=== PATIENT | female | born 1940 | race Caucasian/White ===

== ENCOUNTER 2016-12-05 15:48 | Inpatient (IN) | payer MEDICARE, OTHER ==
--- NOTE | 2016-12-05 16:19 | ER Document Report ---
ED Medical Screen (RME) - General Stated Complaint: HEART RATE PROBLEM Notes: Patient is a 68-year-old female presents emergency Department complaining of dehydration. Patient is undergoing radiation for metastatic melanoma to the brain. Patient's last treatment was on Friday. Her daughters are present claimed that she has not been willing to take anything by mouth, she has required IV fluid hydration over the past week at least 4-5 times. She is either going to Dr. Irene (oncology) for fluids and has had required them at home with home care as well. Daughters bring her here today for evaluation. PMH: DM, metastatic melanoma TRAVEL OUTSIDE OF THE [place] IN LAST 30 DAYS: No - Related Data Allergies/Adverse Reactions: chlorpheniramine [From Codeine Antitussive Cough] Allergy (Intermediate, Verified 11/14/16 16:49) "over sedated" codeine [From Codeine Antitussive Cough] Allergy (Intermediate, Verified 16:49) "over sedated" phenylephrine HCl [From Codeine Antitussive Cough] Allergy (Intermediate, Verified 11/14/16 16:49) "over sedated" Past Medical History - Past Medical History Cardiac Medical History: Reports: Hx Coronary Artery Disease, Hx Hypertension Denies: Hx Congestive Heart Failure, Hx Heart Attack, Hx Heart Murmur Pulmonary Medical History: Denies: Hx Asthma, Hx Bronchitis, Hx COPD, Hx Pneumonia Neurological Medical History: Denies: Hx Cerebrovascular Accident, Hx Seizures Malignancy Medical History: Reports: Hx Brain Cancer - Brain tumor unknown primary suspected lung, Hx Lung Cancer - Pending tissue diagnosis GI Medical History: Denies: Hx Hepatitis, Hx Hiatal Hernia, Hx Ulcer Musculoskeltal Medical History: Reports Hx Arthritis - generalized, Denies Hx Muscle Weakness Infectious Medical History: Denies: Hx Hepatitis Past Surgical History: Denies: Hx Hysterectomy, Hx Mastectomy, Hx Open Heart Surgery, Hx Pacemaker - Immunizations Hx Diphtheria, Pertussis, Tetanus Vaccination: Yes
[2016-12-05 16:41] LABS: HEMATOCRIT 32.7 % (36.0-47.0); HEMOGLOBIN 11.5 g/dL (12.0-15.5); HGB HCT DIFFERENCE 1.8; MEAN CORPUSCULAR HEMOGLOBIN 30.5 pg (27.0-33.4); MEAN CORPUSCULAR HGB CONC 35.2 g/dL (32.0-36.0); MEAN CORPUSCULAR VOLUME 87 fl (80-97); RED BLOOD COUNT 3.77 10^6/uL (3.72-5.28); RED CELL DISTRIBUTION WIDTH 14.2 % (11.5-14.0); WHITE BLOOD COUNT 7.8 10^3/uL (4.0-10.5)
[2016-12-05 16:56] LABS: ALANINE AMINOTRANSFERASE 40 U/L (9-52); ALBUMIN 2.6 g/dL (3.5-5.0); ALKALINE PHOSPHATASE 60 U/L (38-126); ANION GAP 10 (5-19); ASPARTATE AMINO TRANSFERASE 23 U/L (14-36); BILIRUBIN,TOTAL 0.3 mg/dL (0.2-1.3); BLOOD UREA NITROGEN 9 mg/dL (7-20); CALCIUM 8.5 mg/dL (8.4-10.2); CARBON DIOXIDE 27 mmol/L (22-30); CHLORIDE 95 mmol/L (98-107); CREATININE RESULT 0.45 mg/dL (0.52-1.25); GLUCOSE 111 mg/dL (75-110); POTASSIUM 3.8 mmol/L (3.6-5.0); SODIUM 132.4 mmol/L (137-145); TOTAL PROTEIN 5.2 g/dL (6.3-8.2)
[2016-12-05 17:03] LABS: ANISOCYTOSIS SLIGHT; BAND NEUTROPHILS % (MANUAL) 4 % (3-5); BASOPHILS % (MANUAL) 0 % (0-2); EOSINOPHILS % (MANUAL) 0 % (0-6); LYMPHOCYTES % (MANUAL) 20 % (13-45); TOTAL CELLS COUNTED 100; TOXIC GRANULATION SLIGHT
[2016-12-05 17:12] LABS: APPEARANCE,URINE CLEAR; BILIRUBIN,URINE NEGATIVE (NEGATIVE); GLUCOSE, URINE 50 mg/dL (NEGATIVE); KETONES,URINE NEGATIVE (NEGATIVE); LEUKOCYTE ESTERASE,URINE NEGATIVE (NEGATIVE); NITRITE,URINE NEGATIVE (NEGATIVE); PROTEIN,URINE NEGATIVE (NEGATIVE); URINE SPECIFIC GRAVITY 1.009; UROBILINOGEN,URINE NEGATIVE mg/dL (<2.0)
[2016-12-05] MEDS ORDERED: PIPERACILLIN/TAZOBACTAM 3.375 GM VIAL IV ONE (18:31)
[2016-12-05] MEDS ORDERED: NORMAL SALINE 1000 ML 1,000 ML IV ONE (18:50)
--- NOTE | 2016-12-05 18:52 | ER Document Report ---
ED General - General Chief Complaint: Weakness Stated Complaint: HEART RATE PROBLEM Cannot obtain history due to: Unstable vital signs, Altered mental status Notes: Patient is a 76-year-old female with an intracranial neoplasm currently receiving targeted radiation therapy who presents with progressive decline since discharge on 11/18. The daughter provides the history as the patient does not provide any meaningful history. Daughter states that initially the patient was discharged home she was able to ambulate with a walker but steadily declined to the the point where she is no longer able to ambulate without a 2 person assist. She has been seen in the oncology clinic repeatedly requiring IV fluids for dehydration but has had less response in the last 2 days. When the patient was unable to tolerate any oral intake today secondary to anorexia and seemed more confused, the daughter brought her to the emergency department for further assessment. History is otherwise limited secondary to patient's mental status. TRAVEL OUTSIDE OF THE [place] IN LAST 30 DAYS: No - Related Data Allergies/Adverse Reactions: chlorpheniramine [From Codeine Antitussive Cough] Allergy (Intermediate, Verified 12/05/16 16:15) "over sedated" codeine [From Codeine Antitussive Cough] Allergy (Intermediate, Verified 16:15) "over sedated" phenylephrine HCl [From Codeine Antitussive Cough] Allergy (Intermediate, Verified 12/05/16 16:15) "over sedated" Past Medical History - General Information source: Relative - Social History Smoking Status: Never Smoker Chew tobacco use (# tins/day): No Frequency of alcohol use: None Drug Abuse: None Lives with: Family Family History: Arthritis, Hypertension Patient has suicidal ideation: No Patient has homicidal ideation: No - Past Medical History Cardiac Medical History: Reports: Hx Coronary Artery Disease, Hx Hypertension Denies: Hx Congestive Heart Failure, Hx Heart Attack, Hx Heart Murmur Pulmonary Medical History: Denies: Hx Asthma, Hx Bronchitis, Hx COPD, Hx Pneumonia Neurological Medical History: Denies: Hx Cerebrovascular Accident, Hx Seizures Renal/ Medical History: Denies: Hx Peritoneal Dialysis Malignancy Medical History: Reports: Hx Brain Cancer - Brain tumor unknown primary suspected lung, Hx Lung Cancer - Pending tissue diagnosis GI Medical History: Denies: Hx Hepatitis, Hx Hiatal Hernia, Hx Ulcer Musculoskeltal Medical History: Reports Hx Arthritis - generalized, Denies Hx Muscle Weakness Infectious Medical History: Denies: Hx Hepatitis Past Surgical History: Denies: Hx Hysterectomy, Hx Mastectomy, Hx Open Heart Surgery, Hx Pacemaker - Immunizations Hx Diphtheria, Pertussis, Tetanus Vaccination: Yes Hx Pneumococcal Vaccination: 08/04/11 Review of Systems - Review of Systems -: Yes ROS unobtainable due to patient's medical condition Physical Exam - Vital signs Vitals: Temp Pulse Resp BP Pulse Ox 99.1 F 121 H 24 H 105/62 91 L 12/05/16 16:15 12/05/16 16:15 12/05/16 16:15 12/05/16 16:15 12/05/16 16:15 Interpretation: Tachycardic, Hypoxic, Tachypneic Notes: PHYSICAL EXAMINATION: GENERAL: Frail, elderly, ill in appearance. No acute distress. HEAD: Atraumatic, normocephalic. EYES: Pupils equal round and reactive to light, extraocular movements intact, sclera anicteric, conjunctiva are normal. ENT: nares patent, oropharynx clear without exudates. Dry mucous membranes. NECK: Normal range of motion, supple without lymphadenopathy LUNGS: Breath sounds clear to auscultation bilaterally and equal. No wheezes rales or rhonchi. HEART: Tachycardia without murmurs ABDOMEN: Soft, nontender, normoactive bowel sounds. No guarding, no rebound. No masses appreciated. EXTREMITIES: Normal range of motion, no pitting or edema. No cyanosis. NEUROLOGICAL: No focal neurological deficits. Moves all extremities spontaneously and on command. PSYCH: Confused but able to report her name, month and year. Unable to provide a reliable history SKIN: Warm, Dry, normal turgor, no rashes or lesions noted. Course - Re-evaluation Re-evalutation: 12/05/16 18:51 Patient presents with concerns of tachycardia, altered mental status, and lethargy. She is very ill in appearance, seems confused, unable to answer questions appropriately. Initial vitals demonstrate both tachycardia, hypoxia, tachypnea. She continues to saturate 94% on 2 L by nasal cannula on initial assessment. Of note patient was discharged in the hospital less than 2 weeks ago she was saturating 99% on room air. Primary concern at this time includes hospital-acquired pneumonia versus acute pulmonary embolus. Initial laboratories are overall unremarkable. Initial chest x-ray without evidence of an obvious pneumonia. 12/05/16 21:47 Patient appears clinically improved at this time no longer tachycardic or hypotensive. She continues to have oxygen dependence. CT of the chest shows unchanged pulmonary nodules but no evidence of a pulmonary embolus or pneumonia. It is possible the patient is hypoventilating in the setting of her known brain mass and possible associated edema with radiation. I discussed this case with her oncologist who has recommended a CT of the head at this time and if this is unremarkable planning for admission here. The daughter was updated at the bedside at this time. 12/06/16 00:09 CT the head unchanged from prior. I discussed this case with Dr. Drew who is accepted for admission. I also rediscussed with patient's oncologist who does not want to start steroids at this time. Repeat oral temperature at this time is 100.2. A rectal tenriism be obtained. 12/06/16 03:20 Patient did have a rectal temperature 100.1F. Her heart rate and temperature did improve after receiving 975 mg of Tylenol. - Vital Signs Vital signs: Temp Pulse Resp BP Pulse Ox 101.0 F H 121 H 14 106/60 96 12/06/16 00:35 12/05/16 16:15 12/06/16 02:01 12/06/16 02:01 12/06/16 02:01 - Laboratory Result Diagrams: 12/05/16 16:25 12/05/16 16:25 Laboratory results interpreted by me: 12/05/16 12/05/16 12/05/16 16:25 16:25 16:50 Hgb 11.5 L Hct 32.7 L RDW 14.2 H Sodium 132.4 L Chloride 95 L Creatinine 0.45 L Glucose 111 H Total Protein 5.2 L Albumin 2.6 L Urine Glucose (UA) 50 H - Diagnostic Test Radiology reviewed: Image reviewed, Reports reviewed Critical Care Note - Critical Care Note Total time excluding time spent on procedures (mins): 35 Comments: Critical care time spent obtaining history from patient or surrogate, discussions with consultants, development of treatment plan with patient or surrogate, evaluation of patient's response to treatment, examination of patient , ordering and performing treatments and interventions, ordering and review of laboratory studies, re-evaluation of patient's condition, ordering and review of radiographic studies and review of old charts Discharge - Discharge Clinical Impression: Brain neoplasm, Dehydration, Tachycardia, Hypoxemia Condition: Fair Disposition: ADMITTED INPATIENT Admitting Provider: Jermaine Almeida Drew Unit Admitted: ICU
[2016-12-06] MEDS ORDERED: NORMAL SALINE 1000 ML 1,000 ML IV ONE (00:03)
[2016-12-06] MEDS ORDERED: ACETAMINOPHEN 325 MG TABLET PO ONE (00:06)
[2016-12-06] MEDS ORDERED: DEXTROSE 50%-WATER 25 GM/50 ML DISP.SYRIN IV PRN ×2 (04:55)
[2016-12-06] MEDS ORDERED: DEXTROSE 40% GEL 15 GM TUBE PO PRN ×2 (04:55)
[2016-12-06] MEDS ORDERED: INSULIN LISPRO 100 UNIT/ML 3 ML VIAL SUBCUT PRN (04:55)
[2016-12-06] MEDS ORDERED: GLUCAGON,HUMAN RECOMB 1 MG INJ IM PRN (04:55)
[2016-12-06] MEDS ORDERED: MAGNESIUM HYDROXIDE SUSP 30 ML UDCUP PO PRN (04:56)
--- NOTE | 2016-12-06 05:22 | PDOC H&P ---
History of Present Illness Admission Date/PCP: 12/06/16 00:16 PASCUAL Olson Patient complains of: confusion, gen weak, decr po intake History of Present Illness: ANGEL SIMON is a 76 year old female with known metastatic disease to brain, felt to be from original primary melanoma, excised from her right arm 7 years ago, who presents to the emergency room for evaluation of above complaints. Patient has been discussed with emergency room physician who evaluated the patient. Patient, while denying pain, is globally disoriented and is able to provide no history whatsoever in terms of acute or chronic events, review of systems, personal habits, family history, etc. Daughter is present at bedside and helpful and informative. Old inpatient records are reviewed.. Prior to my being called, the emergency room physician did discuss patient with Dr. Olson. Dr. Olson did not wish steroids to be restarted. Per daughter, brain tumors were discovered approximately Thanks of last year. Started on Decadron, and was subsequently hospitalized on our service through November 18 of last year, with discharge diagnoses including hyperglycemia felt secondary to Decadron, which was not continued. Whole brain irradiation was started shortly thereafter, and since that time patient has exhibited gradual progressive decline. Previously able to ambulate with a walker, but now only able to ambulate with 2 person total assistance. Decreased responsiveness and by mouth intake over the last 2 days. Has actually been going to the oncology clinic on virtually daily basis for the past several days for intravenous fluids. However, gradual decline has persisted. Over the last 24 hours, patient has had no oral intake at all, with increasing confusion. No vomiting or diarrhea. Noted to be febrile shortly after arrival in the emergency room, with a new oxygen requirement. Imaging studies included CT angiogram of the chest for combination suspected pneumonia and/or pulmonary embolus. No evidence of either. CT scan of the brain revealed little change from prior imaging studies. Laboratory results are listed in [facility] and are reviewed. X-ray summary results are listed below, with full report(s) reviewed. . EKG's reviewed and compared to prior tracing from November 14 of last year.. Social history/personal habits: . 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 No use of alcohol tobacco or illicit drugs. Allergies/adverse reactions are listed in [facility] and are reviewed. Daughter states adverse reaction only to codeine. Home medications are reviewed by discussion with daughter and from a typed list provided by daughter and are to be reconciled by nursing staff in [facility]. Home medications initially autopopulated into [facility] may not accurately reflect patient's true medications, dosages, and/or frequencies. REVIEW OF SYSTEMS: See history and present illness. No further information available this point in time. PHYSICAL EXAMINATION: 5 feet 2 inches tall. 59.1 kg. BMI 23.8 kg/m. Blood pressure 103/58. Pulse 78 and regular. 96% saturation on 2 L oxygen per nasal cannula. Respirations are 14 and unlabored. Temperature 98.4. Temperature maximum of 101.0 earlier. Well-nourished well-developed elderly female, appearing approximately her stated age. Initially asleep, but does awaken reasonably easily, although remains somewhat fatigued. Denies pain. Mildly anxious, without agitation. Skin is warm and dry. No grossly obvious evidence of rash in areas of skin examined. No subcutaneous nodules palpated. ENT: Hearing grossly normal to normal conversation. Tongue midline on protrusion pink and slightly moist. Eyes: No scleral icterus. Pupils equal and reactive to light at 4 mm. [place] conjunctivae. No Raccoon eyes. Neck is supple and nontender to gentle active range of motion and palpation. Midline trachea. No palpable thyroid nodule mass enlargement or tenderness. Lymphatic: No palpable cervical or clavicular nodes. Neck and lymphatic exams limited by patient body habitus. Psychiatric: Globally disoriented. Lungs: Auscultation reveals clear and equal breath sounds bilaterally. No use of accessory respiratory muscles. Cardiovascular: Heart regular rate and rhythm, without gallop murmur or rub. No carotid or abdominal aortic bruits. No ankle or pedal edema. Faintly palpable dorsalis pedis pulses. Abdomen: soft, nontender with positive bowel sounds. No upper abdominal mass or organomegaly is palpated.. Extremities: Feet are warm and dry. No calf tenderness to compression. No grossly obvious visual evidence of calf swelling. Gentle manipulation of lower extremities fails to reveal any obvious evidence of injury or instability to knees hips or ankles. Neurologic: Moves upper extremities grossly normally. Hand film writer 5 over 5 and symmetric. Patellar reflexes absent. Absent Babinski. Light touch can't be adequately determined due to her mental status.. Does not seem to understand request for dorsiflexion or plantarflexion of feet, nor tricep extension. Biceps flexion 5 over 5 and symmetric. Past Medical History Cardiac Medical History: Reports: Coronary Artery Disease, Hypertension Denies: Congestive Heart Failure, Myocardial Infarction, Heart Murmur Pulmonary Medical History: Denies: Asthma, Bronchitis, Chronic Obstructive Pulmonary Disease (COPD), Pneumonia Neurological Medical History: Denies: Seizures Malignancy Medical History: Reports: Brain Cancer - Brain tumor; likely from primary melanoma; suspected lung mets, also, Lung Cancer - Pending tissue diagnosis GI Medical History: Denies: Hepatitis, Hiatal Hernia Musculoskeltal Medical History: Reports: Arthritis - generalized Hematology: Denies: Anemia, Sickle Cell Disease Past Surgical History Past Surgical History: Reports: Other - Excision of melanoma from right arm 7 years ago. Denies: Amputation, Hysterectomy, Mastectomy, Pacemaker Social History Information Source: Relative, Emergency Med Personnel, [facility] Records Lives with: Family Smoking Status: Never Smoker Frequency of Alcohol Use: None Hx Recreational Drug Use: No Drugs: None Hx Prescription Drug Abuse: No - Advance Directive Resuscitation Status: Full Code Surrogate healthcare decision maker:: Daughter Ruth Elizabeth; daughter states has parkinsonism along with multiple other health problems. Family History Family History: Arthritis, Hypertension Parental Family History Reviewed: Yes Children Family History Reviewed: Yes Sibling(s) Family History Reviewed.: Yes Medication/Allergy Home Medications: Amlodipine Besylate 10 mg PO DAILY 12/06/16 Aspirin 81 mg PO QAM 12/06/16 Furosemide [Lasix] 10 mg PO QAM 12/06/16 Metformin HCl [Metformin HCl ER] 750 mg PO BID 12/06/16 Pravastatin Sodium 20 mg PO QHS 12/06/16 Raloxifene HCl 60 mg PO QAM 12/06/16 Allergies/Adverse Reactions: codeine [From Codeine Antitussive Cough] Allergy (Intermediate, Verified 16:15) "over sedated" heparinoids Adverse Reaction (Verified 12/06/16 04:58) brain mets Physical Exam Vital Signs: Temp Pulse Resp BP Pulse Ox 98.4 F 121 H 13 106/64 97 12/06/16 03:27 12/05/16 16:15 12/06/16 03:01 12/06/16 03:01 12/06/16 03:01 Results Impressions: Chest X-Ray 12/05/16 16:19 IMPRESSION: CHRONIC INTERSTITIAL CHANGES AND STABLE PULMONARY NODULES. NO APPARENT ACUTE FINDINGS. Chest/Abdomen CTA 12/05/16 18:31 IMPRESSION: NO PULMONARY EMBOLI. Left lower lobe pulmonary mass measuring 3.4 cm. Multiple additional pulmonary nodules are present, largest in the right middle lobe measuring 16 mm. Mild basilar subsegmental atelectasis and small pleural effusions are present. Pulmonary mass was noted on the prior PET- CT. NO PULMONARY EMBOLI. Head CT 12/05/16 21:40 IMPRESSION: 2.5 cm right occipital lobe mass with moderate right occipital parietal and temporal lobe a vasogenic edema in the white matter, all similar to the previous MRI. No hemorrhage. No significant midline shift. Assessment & Plan - Diagnosis (1) Acute encephalopathy Is this a current diagnosis for this admission?: YesPlan: Probably multifactorial, including combination of dehydration from poor by mouth intake, along with brain metastases. Supportive care, including IV fluid. Hopefully will resolve with time and treatment. I have strongly encouraged patient not to get out of bed without notifying staff , to avoid a fall with injury. Knee high SCDs for DVT prophylaxis; with brain metastases, will forego Lovenox or heparin at this point in time. Impression and plans were discussed with daughter, who concurs. Time spent in evaluation and management of patient: 58 minutes. (2) Decreased oral intake Is this a current diagnosis for this admission?: YesPlan: Dietary consult. (3) Fever Qualifiers: Fever type: unspecified Qualified Code(s): R50.9 - Fever, unspecified Is this a current diagnosis for this admission?: YesPlan: No obvious source at this point in time. Blood cultures have been drawn. (4) General weakness Is this a current diagnosis for this admission?: YesPlan: Physical and occupational therapy consults. (5) Hypoxemia Is this a current diagnosis for this admission?: YesPlan: No obvious etiology at this point in time, although suspect her lung metastases may be playing a role. Has responded well to supplemental oxygen. (6) Brain neoplasm Is this a current diagnosis for this admission?: YesPlan: Oncology consult; Dr. Olson is aware and will see patient. (7) DVT prophylaxis Is this a current diagnosis for this admission?: Yes (8) Diabetes mellitus type 2 in obese Is this a current diagnosis for this admission?: YesPlan: Accu-Cheks with appropriate sliding scale coverage. We'll hold metformin for the present time due to CT angiogram of chest. (9) Essential hypertension Is this a current diagnosis for this admission?: YesPlan: Resume home medications as appropriate once these have been reviewed. - Inpatient Certification Based on my medical assessment, after consideration of the patient's comorbidities, presenting symptoms, or acuity I expect that the services needed warrant INPATIENT care.: Yes I certify that my determination is in accordance with my understanding of Medicare's requirements for reasonable and necessary INPATIENT services [42 CFR 412.3e].: Yes Medical Necessity: Significant Comorbidiites Make Outpatient Treatment Too Risky , Need Close Monitoring Due to Risk of Patient Decompensation, Need For IV Fluids, Need For Continuous Telemetry Monitoring, Risk of Complication if Not Cared For in Hospital Post Hospital Care: D/C or Transfer Summary
[2016-12-06 07:40] LABS: ABSOLUTE LYMPHOCYTES (AUTO) 1.8 10^3/uL (0.5-4.7); ABSOLUTE MONOCYTES (AUTO) 0.2 10^3/uL (0.1-1.4); ABSOLUTE NEUT (AUTO) 5.6 10^3/uL (1.7-8.2); BASOPHILS % (AUTO) 0.5 % (0-2); EOSINOPHILS % (AUTO) 0.6 % (0-6); HEMATOCRIT 36.8 % (36.0-47.0); HEMOGLOBIN 11.7 g/dL (12.0-15.5); HGB HCT DIFFERENCE -1.7; LYMPHOCYTES % (AUTO) 23.8 % (13-45); MEAN CORPUSCULAR HEMOGLOBIN 28.9 pg (27.0-33.4); MEAN CORPUSCULAR HGB CONC 31.9 g/dL (32.0-36.0); MEAN CORPUSCULAR VOLUME 90 fl (80-97); MONOCYTES % (AUTO) 2.9 % (3-13); RED BLOOD COUNT 4.07 10^6/uL (3.72-5.28); SEGMENTED NEUTROPHILS % (AUTO) 72.2 % (42-78); WHITE BLOOD COUNT 7.7 10^3/uL (4.0-10.5)
[2016-12-06 07:45] LABS: ANION GAP 7 (5-19); BLOOD UREA NITROGEN 7 mg/dL (7-20); CALCIUM 8.5 mg/dL (8.4-10.2); CARBON DIOXIDE 31 mmol/L (22-30); CHLORIDE 103 mmol/L (98-107); CREATININE RESULT 0.46 mg/dL (0.52-1.25); GLUCOSE 103 mg/dL (75-110); MAGNESIUM 1.4 mg/dL (1.6-2.3); POTASSIUM 3.4 mmol/L (3.6-5.0); SODIUM 141.4 mmol/L (137-145)
[2016-12-06] MEDS ORDERED: ATENOLOL 50 MG TABLET PO SCH (08:00)
[2016-12-06] MEDS ORDERED: FUROSEMIDE 20 MG TABLET PO SCH (08:00)
--- NOTE | 2016-12-06 08:51 | PDOC CONSULTATION ---
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 So she was put brought to the ED for more continuous hydration. She recently completed whole brain radiation this past Friday, since radiation initiated she began getting acutely weaker. She also recently stopped the steroid taper. So her blood sugars have been a little bit better. She has been malnourished, not eating well. Past Medical History Cardiac Medical History: Reports: Coronary Artery Disease, Hypertension Denies: Congestive Heart Failure, Myocardial Infarction, Heart Murmur Pulmonary Medical History: Denies: Asthma, Bronchitis, Chronic Obstructive Pulmonary Disease (COPD), Pneumonia Neurological Medical History: Denies: Seizures Malignancy Medical History: Reports: Brain Cancer - Brain tumor unknown primary suspected lung, Lung Cancer - Pending tissue diagnosis GI Medical History: Denies: Hepatitis, Hiatal Hernia Musculoskeltal Medical History: Reports: Arthritis - generalized Hematology: Denies: Anemia, Sickle Cell Disease Past Surgical History Past Surgical History: Denies: Amputation, Hysterectomy, Mastectomy, Pacemaker Social History Lives with: Family Smoking Status: Never Smoker Frequency of Alcohol Use: None Hx Recreational Drug Use: No Drugs: None Hx Prescription Drug Abuse: No - Advance Directive Resuscitation Status: Full Code Family History Family History: Arthritis, Hypertension Parental Family History Reviewed: Yes Children Family History Reviewed: Yes Sibling(s) Family History Reviewed.: Yes Medication/Allergy Home Medications: Amlodipine Besylate 10 mg PO DAILY 12/06/16 Aspirin 81 mg PO QAM 12/06/16 Atenolol 50 mg PO QAM 12/06/16 Furosemide [Lasix] 10 mg PO QAM 12/06/16 Metformin HCl [Metformin HCl ER] 750 mg PO BID 12/06/16 Pravastatin Sodium 20 mg PO QHS 12/06/16 Raloxifene HCl 60 mg PO QAM 12/06/16 Allergies/Adverse Reactions: chlorpheniramine [From Codeine Antitussive Cough] Allergy (Intermediate, Verified 12/05/16 16:15) "over sedated" codeine [From Codeine Antitussive Cough] Allergy (Intermediate, Verified 16:15) "over sedated" phenylephrine HCl [From Codeine Antitussive Cough] Allergy (Intermediate, Verified 12/05/16 16:15) "over sedated" heparinoids Adverse Reaction (Verified 12/06/16 04:58) brain mets Review of Systems ROS unobtainable: Due to mental status Physical Exam Vital Signs: Temp Pulse Resp BP Pulse Ox 98.4 F 121 H 12 117/63 96 12/06/16 03:27 12/05/16 16:15 12/06/16 07:01 12/06/16 07:01 12/06/16 07:01 General appearance: PRESENT: no acute distress, disheveled Mouth exam: PRESENT: dry mucosa Respiratory exam: PRESENT: crackles Cardiovascular exam: PRESENT: RRR. ABSENT: diastolic murmur, rubs, systolic murmur Pulses: PRESENT: normal dorsalis pedis pul GI/Abdominal exam: PRESENT: normal bowel sounds, soft. ABSENT: distended, guarding, mass, organolmegaly, rebound, tenderness Rectal exam: PRESENT: deferred Neurological exam: PRESENT: awake Results Laboratory Results: 12/06/16 07:10 12/06/16 07:10 12/06/16 12/06/16 07:10 07:10 WBC 7.7 RBC 4.07 Hgb 11.7 L Hct 36.8 MCV 90 MCH 28.9 MCHC 31.9 L RDW 14.0 Plt Count 205 Seg Neutrophils % 72.2 Lymphocytes % 23.8 Monocytes % 2.9 L Eosinophils % 0.6 Basophils % 0.5 Absolute Neutrophils 5.6 Absolute Lymphocytes 1.8 Absolute Monocytes 0.2 Absolute Eosinophils 0.0 Absolute Basophils 0.0 Sodium 141.4 Potassium 3.4 L Chloride 103 Carbon Dioxide 31 H Anion Gap 7 BUN 7 Creatinine 0.46 L Est GFR ( Amer) > 60 Est GFR (Non-Af Amer) > 60 Glucose 103 Calcium 8.5 Magnesium 1.4 L Impressions: Chest X-Ray 12/05/16 16:19 IMPRESSION: CHRONIC INTERSTITIAL CHANGES AND STABLE PULMONARY NODULES. NO APPARENT ACUTE FINDINGS. Chest/Abdomen CTA 12/05/16 18:31 IMPRESSION: NO PULMONARY EMBOLI. Left lower lobe pulmonary mass measuring 3.4 cm. Multiple additional pulmonary nodules are present, largest in the right middle lobe measuring 16 mm. Mild basilar subsegmental atelectasis and small pleural effusions are present. Pulmonary mass was noted on the prior PET- CT. NO PULMONARY EMBOLI. Head CT 12/05/16 21:40 IMPRESSION: 2.5 cm right occipital lobe mass with moderate right occipital parietal and temporal lobe a vasogenic edema in the white matter, all similar to the previous MRI. No hemorrhage. No significant midline shift. Status: Image reviewed by me Assessment & Plan - Diagnosis (1) Melanoma Qualifiers: Melanoma location: upper extremity including shoulder Laterality: right Qualified Code(s): C43.61 - Malignant melanoma of right upper limb , including shoulder Is this a current diagnosis for this admission?: YesPlan: Melanoma with brain metastasis, unlikely that the lung lesions were cancers, as they were PET negative. At present, had a long discussion with daughter, spent about 45 minutes in discussion, described her course and next steps of care. Recommended DO NOT RESUSCITATE. She will discuss this further with her family and decide on that. Continue with aggressive hydration over the next 2 days, and if that does not improve her status we may need to repeat MRI of the brain to see if she has had overt progression of disease. - Time Time Spent: Greater than 70 Minutes Critical Time spent with patient: 35 or more minutes - Inpatient Certification Based on my medical assessment, after consideration of the patient's comorbidities, presenting symptoms, or acuity I expect that the services needed warrant INPATIENT care.: Yes I certify that my determination is in accordance with my understanding of Medicare's requirements for reasonable and necessary INPATIENT services [42 CFR 412.3e].: Yes Medical Necessity: Failure to Improve With Outpatient Therapy, Need For IV Fluids
[2016-12-06] MEDS: POTASSI CL 20 MEQ/NS 1L 1,000 ML IV PRN ×2 (08:53→23:17)
[2016-12-06] MEDS: AMLODIPINE BESYLATE 10 MG TABLET PO SCH (11:15)
[2016-12-06] MEDS: DOCUSATE SODIUM 100 MG CAPSULE PO SCH ×2 (11:21→17:37)
--- NOTE | 2016-12-06 11:54 | PDOC PROGRESS REPORT ---
Subjective Progress Note for:: 12/06/16 Subjective:: The patient is currently lying in bed. The patient is awake and alert but not conversational at this time. Patient does moan in pain when stimulated. There have been no reported episodes of vomiting nor diarrhea. The patient has remained afebrile since midnight. Blood pressures were on the lower side. Daughter is present at bedside and active in the patient's care. Daughter is concerned that the patient may take her oxygen off and therefore desat and is asked for continuous pulse ox. Daughter is also concerned about the patient's oral intake and would like the patient to have an appetite stimulant. The patient voices no other concerns at this time. Physical Exam Vital Signs: Temp Pulse Resp BP Pulse Ox 97.8 F 89 16 100/57 L 95 12/06/16 08:42 12/06/16 08:42 12/06/16 08:42 12/06/16 08:42 12/06/16 08:42 Intake & Output 12/04/16 12/05/16 12/06/16 23:59 23:59 23:59 Weight 59.1 kg General appearance: PRESENT: no acute distress, cooperative, well-developed - Frail chronically ill-appearing Head exam: PRESENT: normocephalic, other - Evidence of mild radiation dermatitis Eye exam: PRESENT: conjunctiva pale, EOMI, PERRLA. ABSENT: scleral icterus Ear exam: PRESENT: normal external ear exam Mouth exam: PRESENT: moist, tongue midline Neck exam: ABSENT: carotid bruit, JVD, lymphadenopathy, thyromegaly Respiratory exam: PRESENT: clear to auscultation bairon. ABSENT: rales, rhonchi, wheezes Cardiovascular exam: PRESENT: RRR. ABSENT: diastolic murmur, rubs, systolic murmur Pulses: PRESENT: normal dorsalis pedis pul Vascular exam: PRESENT: normal capillary refill GI/Abdominal exam: PRESENT: normal bowel sounds, soft. ABSENT: distended, guarding, mass, organolmegaly, rebound, tenderness Rectal exam: PRESENT: deferred Extremities exam: PRESENT: full ROM. ABSENT: calf tenderness, clubbing, pedal edema Neurological exam: PRESENT: alert, awake. ABSENT: motor sensory deficit Psychiatric exam: PRESENT: appropriate affect, normal mood. ABSENT: homicidal ideation, suicidal ideation Skin exam: PRESENT: dry, intact, skin tears, warm. ABSENT: cyanosis, rash Results Laboratory Results: 12/06/16 07:10 12/06/16 07:10 12/06/16 12/06/16 07:10 07:10 WBC 7.7 RBC 4.07 Hgb 11.7 L Hct 36.8 MCV 90 MCH 28.9 MCHC 31.9 L RDW 14.0 Plt Count 205 Seg Neutrophils % 72.2 Lymphocytes % 23.8 Monocytes % 2.9 L Eosinophils % 0.6 Basophils % 0.5 Absolute Neutrophils 5.6 Absolute Lymphocytes 1.8 Absolute Monocytes 0.2 Absolute Eosinophils 0.0 Absolute Basophils 0.0 Sodium 141.4 Potassium 3.4 L Chloride 103 Carbon Dioxide 31 H Anion Gap 7 BUN 7 Creatinine 0.46 L Est GFR ( Amer) > 60 Est GFR (Non-Af Amer) > 60 Glucose 103 Calcium 8.5 Magnesium 1.4 L Impressions: Chest X-Ray 12/05/16 16:19 IMPRESSION: CHRONIC INTERSTITIAL CHANGES AND STABLE PULMONARY NODULES. NO APPARENT ACUTE FINDINGS. Chest/Abdomen CTA 12/05/16 18:31 IMPRESSION: NO PULMONARY EMBOLI. Left lower lobe pulmonary mass measuring 3.4 cm. Multiple additional pulmonary nodules are present, largest in the right middle lobe measuring 16 mm. Mild basilar subsegmental atelectasis and small pleural effusions are present. Pulmonary mass was noted on the prior PET- CT. NO PULMONARY EMBOLI. Head CT 12/05/16 21:40 IMPRESSION: 2.5 cm right occipital lobe mass with moderate right occipital parietal and temporal lobe a vasogenic edema in the white matter, all similar to the previous MRI. No hemorrhage. No significant midline shift. Assessment & Plan - Diagnosis (1) Acute on chronic respiratory failure with hypoxemia Is this a current diagnosis for this admission?: YesPlan: Will add a continuous pulse ox and supplemental O2 for now. (2) Acute encephalopathy Is this a current diagnosis for this admission?: YesPlan: Most likely secondary to the patient's underlying disease (3) Dehydration Is this a current diagnosis for this admission?: YesPlan: Very poor by mouth intake the patient's albumin is quite low and will only get lower with hydration. I explained this to the patient's daughter. Will continue to hydrate for now and watch for volume expansion. I have liberalize the diet and added appetite stimulant. (4) Fever Qualifiers: Fever type: unspecified Qualified Code(s): R50.9 - Fever, unspecified Is this a current diagnosis for this admission?: YesPlan: No obvious source will defer antibiotic coverage for now and discuss the case with oncology. (5) GERD (gastroesophageal reflux disease) Qualifiers: Esophagitis presence: esophagitis presence not specified Qualified Code(s): K21.9 - Gastro-esophageal reflux disease without esophagitis (7) Melanoma Qualifiers: Melanoma location: upper extremity including shoulder Laterality: right Qualified Code(s): C43.61 - Malignant melanoma of right upper limb , including shoulder Is this a current diagnosis for this admission?: Yes (8) Diabetes mellitus type 2 in obese Is this a current diagnosis for this admission?: YesPlan: Signs scale coverage (9) Essential hypertension Is this a current diagnosis for this admission?: Yes (10) Metastatic melanoma of brain Is this a current diagnosis for this admission?: YesPlan: Has completed steroids as well as radiation. DO NOT RESUSCITATE status has been recommended by oncology will discuss this with the family this afternoon. (11) General weakness Is this a current diagnosis for this admission?: Yes (12) DVT prophylaxis Is this a current diagnosis for this admission?: Yes - Time Time Spent with patient: on this visit including assessment, plan, physical examination, family meeting, and specialty collaboration, and patient education is 35 minutes. Time Spent with patient: 35 or more minutes Medications reviewed and adjusted accordingly: Yes
[2016-12-06] MEDS ORDERED: MEGESTROL ACETATE SUSP 400 MG/10 ML UDCUP PO ONE (12:15)
[2016-12-06] MEDS: MAGNESIUM SULFATE/D5W 100 ML IV SCH ×2 (12:20→13:32)
--- NOTE | 2016-12-06 14:52 | EKG REPORT ---
SEVERITY:- BORDERLINE ECG - SINUS ARRHYTHMIA, RATE 70-138 BORDERLINE T ABNORMALITIES, ANTERIOR LEADS : Confirmed by: Mally Padilla 06-Dec-2016 14:52:09
[2016-12-06] MEDS: ACETAMINOPHEN 325 MG TABLET PO PRN (15:56)
[2016-12-06] MEDS: SILVER SULFADIAZINE 1% CREAM 25 GM TP SCH ×2 (19:03→23:17)
[2016-12-06] MEDS ORDERED: (PENDING PHARMACY ID) (Pravastatin Sodium [Pravastatin Sodium] 20 MG) PO SCH (22:00)
[2016-12-06] MEDS: ATORVASTATIN CALCIUM 10 MG TABLET PO SCH (22:37)
[2016-12-07] MEDS: SILVER SULFADIAZINE 1% CREAM 25 GM TP SCH ×3 (05:48→17:51)
[2016-12-07 08:21] LABS: HEMATOCRIT 30.4 % (36.0-47.0); HEMOGLOBIN 9.9 g/dL (12.0-15.5); HGB HCT DIFFERENCE -0.7; MEAN CORPUSCULAR HEMOGLOBIN 29.4 pg (27.0-33.4); MEAN CORPUSCULAR HGB CONC 32.5 g/dL (32.0-36.0); MEAN CORPUSCULAR VOLUME 91 fl (80-97); RED BLOOD COUNT 3.35 10^6/uL (3.72-5.28); WHITE BLOOD COUNT 6.5 10^3/uL (4.0-10.5)
[2016-12-07 08:33] LABS: ANION GAP 7 (5-19); BLOOD UREA NITROGEN 6 mg/dL (7-20); CALCIUM 8.1 mg/dL (8.4-10.2); CARBON DIOXIDE 26 mmol/L (22-30); CHLORIDE 105 mmol/L (98-107); CREATININE RESULT 0.36 mg/dL (0.52-1.25); GLUCOSE 105 mg/dL (75-110); MAGNESIUM 1.9 mg/dL (1.6-2.3); POTASSIUM 4.4 mmol/L (3.6-5.0); SODIUM 137.9 mmol/L (137-145)
--- NOTE | 2016-12-07 09:05 | PDOC PROGRESS REPORT ---
Subjective Progress Note for:: 12/07/16 Subjective:: The patient is currently lying in bed. The patient is awake and alert but not conversational at this time. There have been no reported episodes of vomiting nor diarrhea. The patient's had a bowel movement. The patient had yet another temperature overnight. Blood pressures have improved daughter is present at bedside and active in the patient's care. Daughter is concerned about the patient's oxygenation and asked for an incentive spirometer. According to the daughter the patient appetite has picked up since yesterday The patient voices no other concerns at this time. Physical Exam Vital Signs: Temp Pulse Resp BP Pulse Ox 98.8 F 93 20 130/64 H 95 12/07/16 07:42 12/07/16 07:42 12/07/16 07:42 12/07/16 07:42 12/07/16 08:06 Pulse Oximeter Continuous Start: 12/06/16 11: 41 Freq: RTQ4 Status: Active Document 12/07/16 08:06 HCR (Rec: 12/07/16 08:07 HCR [email or web address]) Pulse Oximetry Assessment Oxygen Saturation (92-100) 95 Oxygen Delivery Method Room Air Fraction of Inspired Oxygen (FIO2) 21 Equipment Usage Equipment in Use Continuous SpO2 Machine # 6 Intake & Output 12/05/16 12/06/16 12/07/16 23:59 23:59 23:59 Intake Total 60 55 Balance 60 55 Weight 59.1 kg 59.1 kg General appearance: PRESENT: no acute distress, cooperative, well-developed - Frail chronically ill-appearing Head exam: PRESENT: normocephalic, other - Evidence of mild radiation dermatitis Eye exam: PRESENT: conjunctiva pale, EOMI, PERRLA. ABSENT: scleral icterus Ear exam: PRESENT: normal external ear exam Mouth exam: PRESENT: moist, tongue midline Neck exam: ABSENT: carotid bruit, JVD, lymphadenopathy, thyromegaly Respiratory exam: PRESENT: clear to auscultation bairon. ABSENT: rales, rhonchi, wheezes Cardiovascular exam: PRESENT: RRR. ABSENT: diastolic murmur, rubs, systolic murmur Pulses: PRESENT: normal dorsalis pedis pul Vascular exam: PRESENT: normal capillary refill GI/Abdominal exam: PRESENT: normal bowel sounds, soft. ABSENT: distended, guarding, mass, organolmegaly, rebound, tenderness Rectal exam: PRESENT: deferred Extremities exam: PRESENT: full ROM. ABSENT: calf tenderness, clubbing, pedal edema Neurological exam: PRESENT: alert, awake. ABSENT: motor sensory deficit Psychiatric exam: PRESENT: appropriate affect, normal mood. ABSENT: homicidal ideation, suicidal ideation Skin exam: PRESENT: dry, intact, skin tears, warm. ABSENT: cyanosis, rash Results Laboratory Results: 12/07/16 07:57 12/07/16 07:57 12/07/16 12/07/16 07:57 07:57 WBC 6.5 RBC 3.35 L Hgb 9.9 L Hct 30.4 L MCV 91 MCH 29.4 MCHC 32.5 RDW 14.0 Plt Count 252 Sodium 137.9 Potassium 4.4 Chloride 105 Carbon Dioxide 26 Anion Gap 7 BUN 6 L Creatinine 0.36 L Est GFR ( Amer) > 60 Est GFR (Non-Af Amer) > 60 Glucose 105 Calcium 8.1 L Magnesium 1.9 Impressions: Chest X-Ray 12/05/16 16:19 IMPRESSION: CHRONIC INTERSTITIAL CHANGES AND STABLE PULMONARY NODULES. NO APPARENT ACUTE FINDINGS. Chest/Abdomen CTA 12/05/16 18:31 IMPRESSION: NO PULMONARY EMBOLI. Left lower lobe pulmonary mass measuring 3.4 cm. Multiple additional pulmonary nodules are present, largest in the right middle lobe measuring 16 mm. Mild basilar subsegmental atelectasis and small pleural effusions are present. Pulmonary mass was noted on the prior PET- CT. NO PULMONARY EMBOLI. Head CT 12/05/16 21:40 IMPRESSION: 2.5 cm right occipital lobe mass with moderate right occipital parietal and temporal lobe a vasogenic edema in the white matter, all similar to the previous MRI. No hemorrhage. No significant midline shift. Assessment & Plan - Diagnosis (1) Acute on chronic respiratory failure with hypoxemia Is this a current diagnosis for this admission?: YesPlan: Will add a continuous pulse ox and supplemental O2 for now. Uncertain of the exact etiology of this most likely secondary to overall failure to thrive. (2) Acute encephalopathy Is this a current diagnosis for this admission?: YesPlan: Most likely secondary to the patient's underlying disease (3) Dehydration Is this a current diagnosis for this admission?: YesPlan: Very poor by mouth intake the patient's albumin is quite low and will only get lower with hydration. I explained this to the patient's daughter. Will continue to hydrate for now and watch for volume expansion. I have liberalize the diet and added appetite stimulant. (4) Fever Qualifiers: Fever type: unspecified Qualified Code(s): R50.9 - Fever, unspecified Is this a current diagnosis for this admission?: YesPlan: No obvious source. Given the recurrence of fever discussed the case with oncology and will add Unasyn. This may be due to dermatitis. (5) Melanoma Qualifiers: Melanoma location: upper extremity including shoulder Laterality: right Qualified Code(s): C43.61 - Malignant melanoma of right upper limb , including shoulder Is this a current diagnosis for this admission?: YesPlan: Management as per oncology (6) Diabetes mellitus type 2 in obese Is this a current diagnosis for this admission?: YesPlan: Signs scale coverage (7) Essential hypertension Is this a current diagnosis for this admission?: Yes (8) Metastatic melanoma of brain Is this a current diagnosis for this admission?: YesPlan: Has completed steroids as well as radiation. DO NOT RESUSCITATE status has been recommended by oncology and the family has agreed. (9) General weakness Is this a current diagnosis for this admission?: Yes (10) DVT prophylaxis Is this a current diagnosis for this admission?: Yes - Time Time Spent with patient: on this visit including assessment, plan, physical examination, family meeting and patient education is 25 minutes. Time Spent with patient: 25-34 minutes Medications reviewed and adjusted accordingly: Yes Within: Other - As per oncology Disposition: The patient is a DO NOT RESUSCITATE DO NOT INTUBATE. Pending patient's symptomatology and diagnostic findings will reevaluate as needed.
[2016-12-07] MEDS: AMLODIPINE BESYLATE 10 MG TABLET PO SCH (09:48)
[2016-12-07] MEDS: ASPIRIN 81 MG TABLET, CHEWABLE PO SCH (09:52)
[2016-12-07] MEDS: RALOXIFENE HCL 60 MG TABLET PO SCH (09:57)
[2016-12-07] MEDS: DOCUSATE SODIUM 100 MG CAPSULE PO SCH ×2 (09:59→17:51)
[2016-12-07] MEDS: MEGESTROL ACETATE SUSP 400 MG/10 ML UDCUP PO SCH (09:59)
[2016-12-07] MEDS: POTASSI CL 20 MEQ/NS 1L 1,000 ML IV PRN ×2 (10:03→15:51)
[2016-12-07] MEDS: AMPICILLIN SODIUM/SULBACTAM NA 1.5 GM in NORMAL SALINE 50 ML IV SCH ×2 (13:06→17:50)
[2016-12-07] MEDS ORDERED: LORATADINE 10 MG TABLET PO PRN (20:45)
[2016-12-07] MEDS: ATORVASTATIN CALCIUM 10 MG TABLET PO SCH (21:12)
[2016-12-07] MEDS: ACETAMINOPHEN 325 MG TABLET PO PRN (22:51)
--- NOTE | 2016-12-07 23:43 | PDOC PROGRESS REPORT ---
Subjective Progress Note for:: 12/07/16 Subjective:: Awake and more alert. Does respond to commands and simple questions. Seems to be eating better according to her daughter. Physical Exam Vital Signs: Temp Pulse Resp BP Pulse Ox 98.4 F 90 15 123/63 95 12/07/16 20:08 12/07/16 20:08 12/07/16 20:08 12/07/16 20:08 12/07/16 20:08 Pulse Oximeter Continuous Start: 12/06/16 11: 41 Freq: RTQ4 Status: Active Document 12/07/16 19:58 SFL (Rec: 12/07/16 19:58 SFL [email or web address]) Pulse Oximetry Assessment Oxygen Saturation (92-100) 95 Oxygen Flow Rate (L/min) 2 Oxygen Delivery Method Nasal Cannula Equipment Usage Equipment in Use Continuous SpO2 Machine # 6 Intake & Output 12/06/16 12/07/16 12/08/16 06:59 06:59 06:59 Intake Total 115 240 Balance 115 240 Weight 59.1 kg General appearance: PRESENT: no acute distress, cooperative Head exam: PRESENT: normocephalic Eye exam: PRESENT: EOMI Mouth exam: PRESENT: dry mucosa Respiratory exam: PRESENT: clear to auscultation bairon Cardiovascular exam: PRESENT: RRR GI/Abdominal exam: PRESENT: normal bowel sounds, soft Neurological exam: PRESENT: alert, awake, other - Able to answer some questions Results Laboratory Results: 12/07/16 07:57 12/07/16 07:57 12/07/16 12/07/16 07:57 07:57 WBC 6.5 RBC 3.35 L Hgb 9.9 L Hct 30.4 L MCV 91 MCH 29.4 MCHC 32.5 RDW 14.0 Plt Count 252 Sodium 137.9 Potassium 4.4 Chloride 105 Carbon Dioxide 26 Anion Gap 7 BUN 6 L Creatinine 0.36 L Est GFR ( Amer) > 60 Est GFR (Non-Af Amer) > 60 Glucose 105 Calcium 8.1 L Magnesium 1.9 Impressions: Chest X-Ray 12/05/16 16:19 IMPRESSION: CHRONIC INTERSTITIAL CHANGES AND STABLE PULMONARY NODULES. NO APPARENT ACUTE FINDINGS. Chest/Abdomen CTA 12/05/16 18:31 IMPRESSION: NO PULMONARY EMBOLI. Left lower lobe pulmonary mass measuring 3.4 cm. Multiple additional pulmonary nodules are present, largest in the right middle lobe measuring 16 mm. Mild basilar subsegmental atelectasis and small pleural effusions are present. Pulmonary mass was noted on the prior PET- CT. NO PULMONARY EMBOLI. Head CT 12/05/16 21:40 IMPRESSION: 2.5 cm right occipital lobe mass with moderate right occipital parietal and temporal lobe a vasogenic edema in the white matter, all similar to the previous MRI. No hemorrhage. No significant midline shift. Assessment & Plan - Diagnosis (1) General weakness Is this a current diagnosis for this admission?: YesPlan: Eating better and more alert. Hopefully will be able to undergo some PT (2) Metastatic melanoma of brain Is this a current diagnosis for this admission?: YesPlan: Completed XRT and will have to sse how she recovers before making further treatment decisions - Time Time Spent with patient: 35 or more minutes Critical Time spent with patient: 25-34 minutes - Inpatient Certification Medical Necessity: Need for Neurological Checks
[2016-12-08] MEDS: AMPICILLIN SODIUM/SULBACTAM NA 1.5 GM in NORMAL SALINE 50 ML IV SCH ×3 (00:12→12:40)
[2016-12-08] MEDS: SILVER SULFADIAZINE 1% CREAM 25 GM TP SCH ×4 (00:12→18:22)
[2016-12-08 08:34] LABS: ALBUMIN 2.1 g/dL (3.5-5.0); ANION GAP 9 (5-19); BLOOD UREA NITROGEN 7 mg/dL (7-20); CALCIUM 8.1 mg/dL (8.4-10.2); CARBON DIOXIDE 26 mmol/L (22-30); CHLORIDE 104 mmol/L (98-107); CREATININE RESULT 0.37 mg/dL (0.52-1.25); GLUCOSE 119 mg/dL (75-110); MAGNESIUM 1.7 mg/dL (1.6-2.3); POTASSIUM 4.1 mmol/L (3.6-5.0); SODIUM 138.7 mmol/L (137-145)
[2016-12-08] MEDS ORDERED: DIPHENHYDRAMINE HCL 50 MG/ML VIAL IV PRN (08:49)
[2016-12-08] MEDS ORDERED: HYDROXYZINE HCL 10 MG TABLET PO PRN (08:49)
[2016-12-08] MEDS ORDERED: DIPHENHYDRAMINE HCL 25 MG CAPSULE PO PRN (08:49)
[2016-12-08] MEDS ORDERED: IBUPROFEN 600 MG TABLET PO PRN (08:49)
[2016-12-08] MEDS ORDERED: DILTIAZEM HCL INJ 25 MG/5 ML VIAL IV ONE (09:07)
[2016-12-08] MEDS ORDERED: DILTIAZEM HCL INJ 25 MG/5 ML VIAL ONE ×2 (09:08→09:19)
[2016-12-08] MEDS ORDERED: DILTIAZEM HCL INJ 25 MG/5 ML VIAL IV SCH (09:15)
[2016-12-08] MEDS ORDERED: DILTIAZEM HCL/D5W 125 ML IV PRN (09:40)
[2016-12-08] MEDS ORDERED: ONDANSETRON HCL INJ/PF 4 MG/2 ML SDV IV PRN (09:40)
[2016-12-08] MEDS ORDERED: ONDANSETRON HCL INJ/PF 4 MG/2 ML SDV ONE (09:41)
[2016-12-08] MEDS ORDERED: HYOSCYAMINE SULFATE 0.125 MG TABLET SL PRN ×2 (09:56→11:17)
--- NOTE | 2016-12-08 10:09 | EKG REPORT ---
SEVERITY:- BORDERLINE ECG - SINUS TACHYCARDIA WITH IRREGULAR RATE [id number] : Confirmed by: Anat Wall MD 08-Dec-2016 10:08:53
[2016-12-08] MEDS: DOCUSATE SODIUM 100 MG CAPSULE PO SCH ×2 (10:34→13:28)
[2016-12-08] MEDS ORDERED: CETIRIZINE 10 MG TABLET PO ONE (11:30)
[2016-12-08] MEDS ORDERED: FAMOTIDINE 20 MG TABLET PO ONE (11:30)
[2016-12-08] MEDS: ASPIRIN 81 MG TABLET, CHEWABLE PO SCH (12:00)
[2016-12-08] MEDS ORDERED: ONDANSETRON HCL INJ/PF 4 MG/2 ML SDV IV ONE (12:00)
[2016-12-08] MEDS ORDERED: MORPHINE SULFATE 10 MG/ML INJ IV ONE (12:00)
[2016-12-08] MEDS: RALOXIFENE HCL 60 MG TABLET PO SCH (12:00)
[2016-12-08] MEDS ORDERED: SCOPOLAMINE HYDROBROMIDE 1.5 MG PATCH.TD72 TD ONE (12:00)
[2016-12-08] MEDS: MEGESTROL ACETATE SUSP 400 MG/10 ML UDCUP PO SCH (12:00)
[2016-12-08] MEDS ORDERED: HYOSCYAMINE SULFATE 0.125 MG TABLET SL ONE (12:00)
[2016-12-08] MEDS: MORPHINE SULFATE 60 MG/60 ML RTUINJ IV PRN (15:06)
[2016-12-08] MEDS ORDERED: ACETAMINOPHEN 650 MG SUPP.RECT PR PRN (16:20)
--- NOTE | 2016-12-08 16:20 | PDOC PROGRESS REPORT ---
Subjective Progress Note for:: 12/08/16 Subjective:: The patient has been seen and evaluated multiple times throughout the day. Family support is been offered in numerous interactions throughout the day as well. Upon my initial rounds this morning the patient was found to be asleep. According to the daughter who was present at the bedside the patient had a very bad night. Apparently the patient has had tremendous hot flashes have resulted in very high heart rates and extreme agitation. The patient symptoms improved overnight with the Tylenol kicked and however they are recurrent. The patient also appears to have significant discomfort associated with radiation burn/ dermatitis. According to the daughter the patient did not have any food at supper and has not had any practice. At this time I did discuss prognosis and goals of care. During my rounds I revisited the patient and family as a found the patient to be retching and dry heaving. The patient was communicating abdominal pain and was found to be in moderate distress. During this time the patient's heart rate 170 on the monitor and some strips were consistent with A. fib in all leads. Family and patient denied any known history of atrial fibrillation. It appears the patient has been on atenolol has been stopped in recent days due to bradycardia. I discussed treatment options of atrial fibrillation given that the patient was symptomatic with it including IV associated with heart palpitations. Initially it was elected to receive with IV push Cardizem at max dose for the telemetry unit. This was done while I watched the monitor and the patient did not convert to sinus rhythm the heart rate did improve to the 110' s. Even the patient's brain metastases anticoagulation was only advised as a baby aspirin. I did discuss the case with Dr. Coleman to update her on the patient's condition. At this time I did discuss prognosis and goals of care. The patient was transferred to [facility]. While on the unit the patient's heart rate once again went up to 170s and Cardizem drip was started. The patient continued to complain of excruciating abdominal pain and the patient was given morphine which did help her comfort. The patient's heart rate did improve to the 70s and the patient converted to sinus rhythm. I was then approached by the patient's daughters who wanting to discuss comfort measures as they stated that the patient would not want to live like this and that their mother would never want to be in this condition. After a lengthy discussion with the family regarding treatment of symptoms versus treatment of disease process the family has elected to proceed with comfort measures. Patient is agreeable to this as the patient defers decision making to her daughters. The family has agreed to comfort measures they consist of a morphine ROLL ON MAN with a basal rate of 1 milligram an hour with a demand dose of 1 milligram every 10 minutes. They're agreeable to scopolamine patch and any when necessary anti- medic. They are aware the patient will not be monitored and vital signs were before [place] the patient's treatment will consist of only the patient's comfort and that monitors and diagnostics will not be treated. The patient symptoms will be treated. Physical Exam Vital Signs: Temp Pulse Resp BP Pulse Ox 99.4 F 112 H 15 93/50 L 98 12/08/16 09:52 12/08/16 09:52 12/08/16 09:52 12/08/16 12:34 12/08/16 09:52 Pulse Oximeter Continuous Start: 12/06/16 11: 41 Freq: RTQ4 Status: Complete Document 12/08/16 08:23 HCR (Rec: 12/08/16 08:24 HCR [email or web address]) Pulse Oximetry Assessment Oxygen Saturation (92-100) 95 Oxygen Flow Rate (L/min) 2 Oxygen Delivery Method Nasal Cannula Equipment Usage Equipment in Use Continuous SpO2 Machine # 6 Intake & Output 12/06/16 12/07/16 12/08/16 23:59 23:59 23:59 Intake Total 60 295 75 Balance 60 295 75 Weight 59.1 kg 59.1 kg 59.1 kg General appearance: PRESENT: disheveled, mild distress Exam: Frail chronically ill-appearing Head exam: PRESENT: other - Redness associated with radiation Eye exam: PRESENT: conjunctiva pale, EOMI, PERRLA. ABSENT: scleral icterus Ear exam: PRESENT: normal external ear exam Mouth exam: PRESENT: moist, tongue midline Neck exam: ABSENT: JVD Respiratory exam: PRESENT: decreased breath sounds, symmetrical, tachypnea. ABSENT: rales, rhonchi, unlabored, wheezes Cardiovascular exam: PRESENT: irregular rhythm. ABSENT: diastolic murmur, rubs , systolic murmur Pulses: PRESENT: normal dorsalis pedis pul Vascular exam: PRESENT: pallor GI/Abdominal exam: PRESENT: firm, hyperactive bowel sounds, soft, tenderness. ABSENT: distended, guarding, mass, organolmegaly, rebound Rectal exam: PRESENT: deferred Extremities exam: ABSENT: pedal edema Musculoskeletal exam: ABSENT: ambulatory Neurological exam: PRESENT: alert, awake, oriented to person, oriented to place , oriented to time, oriented to situation. ABSENT: aphasic Psychiatric exam: PRESENT: anxious Focused psych exam: PRESENT: restlessness Skin exam: PRESENT: dry, erythema, intact, rash, urticaria, warm. ABSENT: cyanosis Results Laboratory Results: 12/07/16 07:57 12/08/16 07:38 12/07/16 12/08/16 12/08/16 07:57 07:38 07:38 Sodium 138.7 Potassium 4.1 Chloride 104 Carbon Dioxide 26 Anion Gap 9 BUN 7 Creatinine 0.37 L Est GFR ( Amer) > 60 Est GFR (Non-Af Amer) > 60 Glucose 119 H Calcium 8.1 L Magnesium 1.7 Albumin 2.1 L TSH Cancelled 1.25 Impressions: Chest X-Ray 12/05/16 16:19 IMPRESSION: CHRONIC INTERSTITIAL CHANGES AND STABLE PULMONARY NODULES. NO APPARENT ACUTE FINDINGS. Chest/Abdomen CTA 12/05/16 18:31 IMPRESSION: NO PULMONARY EMBOLI. Left lower lobe pulmonary mass measuring 3.4 cm. Multiple additional pulmonary nodules are present, largest in the right middle lobe measuring 16 mm. Mild basilar subsegmental atelectasis and small pleural effusions are present. Pulmonary mass was noted on the prior PET- CT. NO PULMONARY EMBOLI. Head CT 12/05/16 21:40 IMPRESSION: 2.5 cm right occipital lobe mass with moderate right occipital parietal and temporal lobe a vasogenic edema in the white matter, all similar to the previous MRI. No hemorrhage. No significant midline shift. KUB X-Ray 12/08/16 11:11 IMPRESSION: Nonspecific intestinal bowel gas pattern. Small radiopaque density adjacent to the L3-L4 disc space on the right which could conceivably represent a ureteric calculus. Other findings as noted above Assessment & Plan - Diagnosis (1) Metastatic melanoma of brain Is this a current diagnosis for this admission?: YesPlan: Family has elected to proceed with comfort care measures. The patient's management will consist at this time of ROLL ON MAN pump, as needed anti-medics (2) Acute on chronic respiratory failure with hypoxemia Is this a current diagnosis for this admission?: YesPlan: supplemental O2 for comfort now. Uncertain of the exact etiology of this most likely secondary to overall failure to thrive. (3) Acute encephalopathy Is this a current diagnosis for this admission?: YesPlan: Most likely secondary to the patient's underlying disease (4) Dehydration Is this a current diagnosis for this admission?: YesPlan: Continue to hydrate the misuse of normalized. (5) Fever Qualifiers: Fever type: unspecified Qualified Code(s): R50.9 - Fever, unspecified Is this a current diagnosis for this admission?: YesPlan: Most likely due to radiation (6) Diabetes mellitus type 2 in obese Is this a current diagnosis for this admission?: YesPlan: DC'd Accu-Cheks for patient comfort (7) Atrial fibrillation with RVR Is this a current diagnosis for this admission?: YesPlan: The patient did convert to sinus arrhythmia and then to sinus. The family has elected to proceed with comfort care measures and wishes for the drip to be stopped will DC drip take the patient off the monitor. If the patient becomes symptomatic with her heart rate and feels palpitations will address this. (8) Essential hypertension Is this a current diagnosis for this admission?: Yes (9) General weakness Is this a current diagnosis for this admission?: Yes (10) DVT prophylaxis Is this a current diagnosis for this admission?: Yes - Time Time Spent with patient: on this visit including assessment, plan, physical examination, family meeting, specialty collaboration, and patient education is 60 minutes. Time Spent with patient: 35 or more minutes Medications reviewed and adjusted accordingly: Yes Anticipated discharge: Hospice Within: within 24 hours Disposition: The patient is a DO NOT RESUSCITATE DO NOT INTUBATE and comfort care measures only. Pending patient's symptomatology and diagnostic findings will reevaluate as needed.
[2016-12-08] MEDS ORDERED: DILTIAZEM HCL INJ 25 MG/5 ML VIAL IV PRN (16:21)
[2016-12-08] MEDS ORDERED: ATROPINE SULFATE 1% OPH SOLN 5 ML BOTTLE SL PRN (16:24)
[2016-12-08] MEDS: FAMOTIDINE 20 MG TABLET PO SCH (22:57)
[2016-12-09] MEDS: SILVER SULFADIAZINE 1% CREAM 25 GM TP SCH ×4 (00:14→18:07)
[2016-12-09] MEDS: MORPHINE SULFATE 10 MG/ML INJ IV PRN (04:04)
[2016-12-09] MEDS ORDERED: LORAZEPAM INJ 2 MG/1 ML VIAL IV PRN (07:50)
--- NOTE | 2016-12-09 07:56 | PDOC PROGRESS REPORT ---
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 Over the last 24-48 hours she's become nonverbal. Physical Exam Vital Signs: Temp Pulse Resp BP Pulse Ox 99.4 F 112 H 16 93/50 L 98 12/08/16 09:52 12/08/16 09:52 12/09/16 07:00 12/08/16 12:34 12/08/16 09:52 Pulse Oximeter Continuous Start: 12/06/16 11: 41 Freq: RTQ4 Status: Complete Document 12/08/16 08:23 HCR (Rec: 12/08/16 08:24 HCR [email or web address]) Pulse Oximetry Assessment Oxygen Saturation (92-100) 95 Oxygen Flow Rate (L/min) 2 Oxygen Delivery Method Nasal Cannula Equipment Usage Equipment in Use Continuous SpO2 Machine # 6 Intake & Output 12/08/16 12/09/16 12/10/16 06:59 06:59 06:59 Intake Total 315 Balance 315 Weight 59.1 kg 59.1 kg General appearance: PRESENT: no acute distress Mouth exam: PRESENT: dry mucosa Respiratory exam: PRESENT: clear to auscultation bairon. ABSENT: rales, rhonchi, wheezes Cardiovascular exam: PRESENT: irregular rhythm GI/Abdominal exam: PRESENT: normal bowel sounds, soft. ABSENT: distended, guarding, mass, organolmegaly, rebound, tenderness Rectal exam: PRESENT: deferred Neurological exam: PRESENT: altered, awake Results Laboratory Results: 12/07/16 07:57 12/08/16 07:38 12/08/16 12/08/16 07:38 07:38 Sodium 138.7 Potassium 4.1 Chloride 104 Carbon Dioxide 26 Anion Gap 9 BUN 7 Creatinine 0.37 L Est GFR ( Amer) > 60 Est GFR (Non-Af Amer) > 60 Glucose 119 H Calcium 8.1 L Magnesium 1.7 Albumin 2.1 L TSH 1.25 Impressions: Chest X-Ray 12/05/16 16:19 IMPRESSION: CHRONIC INTERSTITIAL CHANGES AND STABLE PULMONARY NODULES. NO APPARENT ACUTE FINDINGS. Chest/Abdomen CTA 12/05/16 18:31 IMPRESSION: NO PULMONARY EMBOLI. Left lower lobe pulmonary mass measuring 3.4 cm. Multiple additional pulmonary nodules are present, largest in the right middle lobe measuring 16 mm. Mild basilar subsegmental atelectasis and small pleural effusions are present. Pulmonary mass was noted on the prior PET- CT. NO PULMONARY EMBOLI. Head CT 12/05/16 21:40 IMPRESSION: 2.5 cm right occipital lobe mass with moderate right occipital parietal and temporal lobe a vasogenic edema in the white matter, all similar to the previous MRI. No hemorrhage. No significant midline shift. KUB X-Ray 12/08/16 11:11 IMPRESSION: Nonspecific intestinal bowel gas pattern. Small radiopaque density adjacent to the L3-L4 disc space on the right which could conceivably represent a ureteric calculus. Other findings as noted above Assessment & Plan - Diagnosis (1) Melanoma Qualifiers: Melanoma location: upper extremity including shoulder Laterality: right Qualified Code(s): C43.61 - Malignant melanoma of right upper limb , including shoulder Is this a current diagnosis for this admission?: YesPlan: Stage IV melanoma, no further treatment or workup planned, she has decided on comfort care measures, DO NOT RESUSCITATE is placed, continue with inpatient hospice at present. Discussed outpatient hospice with family, they want to see how things go over the next 24 hours and make a decision. Today spent about 45 minutes in discussion with family. - Time Time Spent with patient: 35 or more minutes Critical Time spent with patient: 35 or more minutes - Inpatient Certification Based on my medical assessment, after consideration of the patient's comorbidities, presenting symptoms, or acuity I expect that the services needed warrant INPATIENT care.: Yes I certify that my determination is in accordance with my understanding of Medicare's requirements for reasonable and necessary INPATIENT services [42 CFR 412.3e].: Yes
[2016-12-09] MEDS: RALOXIFENE HCL 60 MG TABLET PO SCH (08:13)
[2016-12-09] MEDS: ASPIRIN 81 MG TABLET, CHEWABLE PO SCH (08:13)
[2016-12-09] MEDS: DOCUSATE SODIUM 100 MG CAPSULE PO SCH ×2 (11:44→18:13)
[2016-12-09] MEDS: FAMOTIDINE 20 MG TABLET PO SCH ×2 (11:44→21:22)
[2016-12-09] MEDS: MEGESTROL ACETATE SUSP 400 MG/10 ML UDCUP PO SCH (11:44)
[2016-12-09] MEDS: CETIRIZINE 10 MG TABLET PO SCH (11:44)
--- NOTE | 2016-12-09 13:34 | PDOC PROGRESS REPORT ---
Subjective Progress Note for:: 12/09/16 Subjective:: The patient's daughter is present at bedside and active in the patient's care. The patient did have episodes of agitation overnight. The patient responded well to Ativan IV. The daughter reinforces that she does not want the patient suffered be in pain or discomfort. The patient has had no episodes document of vomiting nor diarrhea. Will continue comfort measures. Physical Exam Vital Signs: Temp Pulse Resp BP Pulse Ox 98.6 F 97 20 125/86 H 93 12/09/16 07:48 12/09/16 07:48 12/09/16 07:48 12/09/16 07:48 12/09/16 07:48 Intake & Output 12/07/16 12/08/16 12/09/16 23:59 23:59 23:59 Intake Total 295 75 Balance 295 75 Weight 59.1 kg 59.1 kg 59.1 kg General appearance: PRESENT: disheveled, mild distress Exam: Frail chronically ill-appearing Head exam: PRESENT: other - Redness associated with radiation Eye exam: PRESENT: conjunctiva pale, EOMI, PERRLA. ABSENT: scleral icterus Ear exam: PRESENT: normal external ear exam Mouth exam: PRESENT: moist, tongue midline Neck exam: ABSENT: JVD Respiratory exam: PRESENT: decreased breath sounds, symmetrical, tachypnea. ABSENT: rales, rhonchi, unlabored, wheezes Cardiovascular exam: PRESENT: irregular rhythm. ABSENT: diastolic murmur, rubs , systolic murmur Pulses: PRESENT: normal dorsalis pedis pul Vascular exam: PRESENT: pallor GI/Abdominal exam: PRESENT: firm, hyperactive bowel sounds, soft, tenderness. ABSENT: distended, guarding, mass, organolmegaly, rebound Rectal exam: PRESENT: deferred Extremities exam: ABSENT: pedal edema Musculoskeletal exam: ABSENT: ambulatory Neurological exam: PRESENT: alert, awake, oriented to person, oriented to place , oriented to time, oriented to situation. ABSENT: aphasic Psychiatric exam: PRESENT: anxious Focused psych exam: PRESENT: restlessness Skin exam: PRESENT: dry, erythema, intact, rash, urticaria, warm. ABSENT: cyanosis Results Laboratory Results: 12/07/16 07:57 12/08/16 07:38 Impressions: Chest X-Ray 12/05/16 16:19 IMPRESSION: CHRONIC INTERSTITIAL CHANGES AND STABLE PULMONARY NODULES. NO APPARENT ACUTE FINDINGS. Chest/Abdomen CTA 12/05/16 18:31 IMPRESSION: NO PULMONARY EMBOLI. Left lower lobe pulmonary mass measuring 3.4 cm. Multiple additional pulmonary nodules are present, largest in the right middle lobe measuring 16 mm. Mild basilar subsegmental atelectasis and small pleural effusions are present. Pulmonary mass was noted on the prior PET- CT. NO PULMONARY EMBOLI. Head CT 12/05/16 21:40 IMPRESSION: 2.5 cm right occipital lobe mass with moderate right occipital parietal and temporal lobe a vasogenic edema in the white matter, all similar to the previous MRI. No hemorrhage. No significant midline shift. KUB X-Ray 12/08/16 11:11 IMPRESSION: Nonspecific intestinal bowel gas pattern. Small radiopaque density adjacent to the L3-L4 disc space on the right which could conceivably represent a ureteric calculus. Other findings as noted above Assessment & Plan - Diagnosis (1) Metastatic melanoma of brain Is this a current diagnosis for this admission?: YesPlan: Will continue comfort measures for now. The patient's currently on a HEALTH CARE FACILITIES INSPECTOR pump. Will continue when necessary anti-medics and antianxiety medications. (2) Acute on chronic respiratory failure with hypoxemia Is this a current diagnosis for this admission?: YesPlan: Supplemental O2 for comfort for now (3) Acute encephalopathy Is this a current diagnosis for this admission?: YesPlan: Most likely the underlying disease process. (4) Dehydration Is this a current diagnosis for this admission?: Yes (5) Fever Qualifiers: Fever type: unspecified Qualified Code(s): R50.9 - Fever, unspecified Is this a current diagnosis for this admission?: Yes (6) Diabetes mellitus type 2 in obese Is this a current diagnosis for this admission?: Yes (7) Atrial fibrillation with RVR Is this a current diagnosis for this admission?: YesPlan: Treatment only for patient's comfort. (8) Essential hypertension Is this a current diagnosis for this admission?: Yes (9) General weakness Is this a current diagnosis for this admission?: Yes (10) DVT prophylaxis Is this a current diagnosis for this admission?: Yes - Time Time Spent with patient: on this visit including assessment, plan, physical examination, and patient education is 25 minutes. Time Spent with patient: 25-34 minutes Medications reviewed and adjusted accordingly: Yes Anticipated discharge: Hospice Disposition: The patient is a DO NOT RESUSCITATE DO NOT INTUBATE with comfort care measures only. The daughter elects to see how the patient does today before deciding whether to do hospice at home or at a facility.
[2016-12-09] MEDS: LORAZEPAM INJ 2 MG/1 ML VIAL IV PRN (18:07)
[2016-12-09 20:09] VITALS: BP 127/68
[2016-12-10] MEDS: MORPHINE SULFATE 10 MG/ML INJ IV PRN (00:37)
[2016-12-10] MEDS: LORAZEPAM INJ 2 MG/1 ML VIAL IV PRN (04:28)
[2016-12-10] MEDS: SILVER SULFADIAZINE 1% CREAM 25 GM TP SCH ×4 (05:06→19:33)
[2016-12-10] MEDS: RALOXIFENE HCL 60 MG TABLET PO SCH (08:00)
[2016-12-10] MEDS: ASPIRIN 81 MG TABLET, CHEWABLE PO SCH (08:00)
--- NOTE | 2016-12-10 08:14 | PDOC PROGRESS REPORT ---
Subjective Progress Note for:: 12/10/16 Subjective:: Patient had a rough night, she had severe lower abdominal pain, she had a KUB done which indicated concern of nephrolithiasis. Physical Exam Vital Signs: Temp Pulse Resp BP Pulse Ox 98.3 F 94 16 127/68 H 89 L 12/09/16 20:01 12/09/16 20:01 12/10/16 04:00 12/09/16 20:01 12/09/16 20:01 Pulse Oximeter Continuous Start: 12/06/16 11: 41 Freq: RTQ4 Status: Complete Document 12/08/16 08:23 HCR (Rec: 12/08/16 08:24 HCR [email or web address]) Pulse Oximetry Assessment Oxygen Saturation (92-100) 95 Oxygen Flow Rate (L/min) 2 Oxygen Delivery Method Nasal Cannula Equipment Usage Equipment in Use Continuous SpO2 Machine # 6 Intake & Output 12/09/16 12/10/16 12/11/16 06:59 06:59 06:59 Weight 59.1 kg 58.8 kg General appearance: PRESENT: no acute distress Head exam: PRESENT: atraumatic Respiratory exam: PRESENT: clear to auscultation bairon. ABSENT: rales, rhonchi, wheezes Cardiovascular exam: PRESENT: RRR. ABSENT: diastolic murmur, rubs, systolic murmur GI/Abdominal exam: PRESENT: normal bowel sounds, soft. ABSENT: distended, guarding, mass, organolmegaly, rebound, tenderness Neurological exam: PRESENT: other - Sedated Results Laboratory Results: 12/07/16 07:57 12/08/16 07:38 Impressions: Chest X-Ray 12/05/16 16:19 IMPRESSION: CHRONIC INTERSTITIAL CHANGES AND STABLE PULMONARY NODULES. NO APPARENT ACUTE FINDINGS. Chest/Abdomen CTA 12/05/16 18:31 IMPRESSION: NO PULMONARY EMBOLI. Left lower lobe pulmonary mass measuring 3.4 cm. Multiple additional pulmonary nodules are present, largest in the right middle lobe measuring 16 mm. Mild basilar subsegmental atelectasis and small pleural effusions are present. Pulmonary mass was noted on the prior PET- CT. NO PULMONARY EMBOLI. Head CT 12/05/16 21:40 IMPRESSION: 2.5 cm right occipital lobe mass with moderate right occipital parietal and temporal lobe a vasogenic edema in the white matter, all similar to the previous MRI. No hemorrhage. No significant midline shift. KUB X-Ray 12/08/16 11:11 IMPRESSION: Nonspecific intestinal bowel gas pattern. Small radiopaque density adjacent to the L3-L4 disc space on the right which could conceivably represent a ureteric calculus. Other findings as noted above Assessment & Plan - Diagnosis (1) Melanoma Qualifiers: Melanoma location: upper extremity including shoulder Laterality: right Qualified Code(s): C43.61 - Malignant melanoma of right upper limb , including shoulder Is this a current diagnosis for this admission?: YesPlan: Stage IV melanoma, no further treatment planned, patient on comfort care measures. For the pain, I will increase the basal rate as well as bolus rate of LINING CEMENTER, I believe is imminent so it's possible within the next 24-48 hours for this to happen. She needs inpatient status because her pain is still not fully controlled, last night she was having a lot of pain. Hopefully with the LINING CEMENTER changes she should be more comfortable today. Continue with Ativan as well. Today spent a long time discussing her case with the daughter, spent about 45 minutes in discussion and coordination of care. - Time Time Spent with patient: 35 or more minutes Critical Time spent with patient: 35 or more minutes - Inpatient Certification Based on my medical assessment, after consideration of the patient's comorbidities, presenting symptoms, or acuity I expect that the services needed warrant INPATIENT care.: Yes I certify that my determination is in accordance with my understanding of Medicare's requirements for reasonable and necessary INPATIENT services [42 CFR 412.3e].: Yes Medical Necessity: Need for Pain Control
--- NOTE | 2016-12-10 09:03 | PDOC PROGRESS REPORT ---
Subjective Progress Note for:: 12/10/16 Subjective:: Patient seen on morning rounds. She is presently sleeping comfortably. Daughter is at bedside. Patient according to daughter had a period of significant restlessness and discomfort in her lower abdomen. Patient due to present condition is not able to verbalize her symptoms. Daughter states she was grabbing at her lower abdomen and pelvis. Patient did have a KUB on 12/07/2016 which showed a questionable kidney stone on the right. There was no hydronephrosis noted at that time. Daughter is worried that the stone has moved and is causing her pain. She presently appears pain free. Dr Olson was by earlier and increased the basal dose of morphine to 2 mg/hr. Patient is on comfort measures only. Physical Exam Vital Signs: Temp Pulse Resp BP Pulse Ox 98.3 F 94 16 127/68 H 89 L 12/09/16 20:01 12/09/16 20:01 12/10/16 07:40 12/09/16 20:01 12/09/16 20:01 Pulse Oximeter Continuous Start: 12/06/16 11: 41 Freq: RTQ4 Status: Complete Document 12/08/16 08:23 HCR (Rec: 12/08/16 08:24 HCR [email or web address]) Pulse Oximetry Assessment Oxygen Saturation (92-100) 95 Oxygen Flow Rate (L/min) 2 Oxygen Delivery Method Nasal Cannula Equipment Usage Equipment in Use Continuous SpO2 Machine # 6 Intake & Output 12/09/16 12/10/16 12/11/16 06:59 06:59 06:59 Weight 59.1 kg 58.8 kg General appearance: PRESENT: no acute distress, well-developed, well-nourished Head exam: PRESENT: atraumatic, normocephalic Eye exam: PRESENT: conjunctiva pink, EOMI, PERRLA. ABSENT: scleral icterus Ear exam: PRESENT: normal external ear exam Mouth exam: PRESENT: dry mucosa, tongue midline Neck exam: ABSENT: carotid bruit, JVD, lymphadenopathy, thyromegaly Respiratory exam: PRESENT: clear to auscultation bairon. ABSENT: rales, rhonchi, wheezes Cardiovascular exam: PRESENT: RRR. ABSENT: diastolic murmur, rubs, systolic murmur Pulses: PRESENT: normal carotid pulses Vascular exam: PRESENT: normal capillary refill GI/Abdominal exam: PRESENT: hypoactive bowel sounds, soft. ABSENT: distended, guarding, mass, organolmegaly, rebound, tenderness Rectal exam: PRESENT: deferred Extremities exam: PRESENT: full ROM. ABSENT: calf tenderness, clubbing, pedal edema Neurological exam: PRESENT: altered, CN II-XII grossly intact Psychiatric exam: PRESENT: appropriate affect, normal mood. ABSENT: homicidal ideation, suicidal ideation Skin exam: PRESENT: dry, intact, warm. ABSENT: cyanosis, rash Results Laboratory Results: 12/07/16 07:57 12/08/16 07:38 Impressions: Chest X-Ray 12/05/16 16:19 IMPRESSION: CHRONIC INTERSTITIAL CHANGES AND STABLE PULMONARY NODULES. NO APPARENT ACUTE FINDINGS. Chest/Abdomen CTA 12/05/16 18:31 IMPRESSION: NO PULMONARY EMBOLI. Left lower lobe pulmonary mass measuring 3.4 cm. Multiple additional pulmonary nodules are present, largest in the right middle lobe measuring 16 mm. Mild basilar subsegmental atelectasis and small pleural effusions are present. Pulmonary mass was noted on the prior PET- CT. NO PULMONARY EMBOLI. Head CT 12/05/16 21:40 IMPRESSION: 2.5 cm right occipital lobe mass with moderate right occipital parietal and temporal lobe a vasogenic edema in the white matter, all similar to the previous MRI. No hemorrhage. No significant midline shift. KUB X-Ray 12/08/16 11:11 IMPRESSION: Nonspecific intestinal bowel gas pattern. Small radiopaque density adjacent to the L3-L4 disc space on the right which could conceivably represent a ureteric calculus. Other findings as noted above Assessment & Plan - Diagnosis (1) Acute encephalopathy Is this a current diagnosis for this admission?: YesPlan: Patient with metastatic brain cancer. She is now on comfort measures only. (2) Atrial fibrillation with RVR Is this a current diagnosis for this admission?: YesPlan: Resolved. Patient is now on comfort measures only. She is not monitored (3) Metastatic melanoma of brain Is this a current diagnosis for this admission?: YesPlan: Comfort measures only. Rather new diagnosis over the last 2 months. Daughter is extremely anxious and tearful at the bedside. Emotional support given. (4) Diabetes mellitus type 2 in obese Is this a current diagnosis for this admission?: YesPlan: Comfort measures only (5) Dehydration Is this a current diagnosis for this admission?: YesPlan: Comfort measures only - Time Time Spent with patient: 25-34 minutes Critical Time spent with patient: 15-24 minutes Medications reviewed and adjusted accordingly: Yes
[2016-12-10] MEDS: MORPHINE SULFATE 60 MG/60 ML RTUINJ IV PRN (09:12)
[2016-12-10] MEDS: FAMOTIDINE 20 MG TABLET PO SCH (10:18)
[2016-12-10] MEDS: DOCUSATE SODIUM 100 MG CAPSULE PO SCH (10:18)
[2016-12-10] MEDS: CETIRIZINE 10 MG TABLET PO SCH (10:18)
[2016-12-10] MEDS: MEGESTROL ACETATE SUSP 400 MG/10 ML UDCUP PO SCH (10:18)
[2016-12-10] MEDS: KETOROLAC TROMETHAMINE INJ/PF 30 MG/1 ML SDV IV SCH ×2 (15:56→19:33)
[2016-12-11] MEDS: SILVER SULFADIAZINE 1% CREAM 25 GM TP SCH ×4 (01:30→18:24)
[2016-12-11] MEDS: MORPHINE SULFATE 60 MG/60 ML RTUINJ IV PRN (04:44)
[2016-12-11] MEDS: KETOROLAC TROMETHAMINE INJ/PF 30 MG/1 ML SDV IV SCH ×4 (05:09→18:24)
[2016-12-11] MEDS: ASPIRIN 81 MG TABLET, CHEWABLE PO SCH (07:55)
[2016-12-11] MEDS: LORAZEPAM INJ 2 MG/1 ML VIAL IV PRN (08:38)
[2016-12-11] MEDS ORDERED: LORAZEPAM INJ 2 MG/1 ML VIAL IV PRN ×2 (10:46→10:47)
--- NOTE | 2016-12-11 10:52 | PDOC PROGRESS REPORT ---
Subjective Progress Note for:: 12/11/16 Subjective:: Patient seen on morning rounds. She is presently sleeping comfortably. Daughter is at bedside. Patient had a period of wakefulness a few minutes ago. She was slightly restless and was given ativan 0.5 mg IV Daughter is worried that the stone has moved and is causing her pain. She presently appears pain free. Dr Olson was apparently just in and wants to keep patient another 24 hrs on IV morphine [employer]. Physical Exam Vital Signs: Temp Pulse Resp BP Pulse Ox 98.3 F 94 16 127/68 H 89 L 12/09/16 20:01 12/09/16 20:01 12/11/16 08:00 12/09/16 20:01 12/09/16 20:01 Pulse Oximeter Continuous Start: 12/06/16 11: 41 Freq: RTQ4 Status: Complete Document 12/08/16 08:23 HCR (Rec: 12/08/16 08:24 HCR [email or web address]) Pulse Oximetry Assessment Oxygen Saturation (92-100) 95 Oxygen Flow Rate (L/min) 2 Oxygen Delivery Method Nasal Cannula Equipment Usage Equipment in Use Continuous SpO2 Machine # 6 Intake & Output 12/10/16 12/11/16 12/12/16 06:59 06:59 06:59 Weight 58.8 kg General appearance: PRESENT: no acute distress, well-developed, well-nourished Head exam: PRESENT: atraumatic, normocephalic Eye exam: PRESENT: conjunctiva pink, EOMI, PERRLA. ABSENT: scleral icterus Ear exam: PRESENT: normal external ear exam Mouth exam: PRESENT: moist, tongue midline Neck exam: ABSENT: carotid bruit, JVD, lymphadenopathy, thyromegaly Respiratory exam: PRESENT: clear to auscultation bairon. ABSENT: rales, rhonchi, wheezes Cardiovascular exam: PRESENT: RRR. ABSENT: diastolic murmur, rubs, systolic murmur Pulses: PRESENT: normal dorsalis pedis pul Vascular exam: PRESENT: normal capillary refill GI/Abdominal exam: PRESENT: normal bowel sounds, soft. ABSENT: distended, guarding, mass, organolmegaly, rebound, tenderness Rectal exam: PRESENT: deferred Extremities exam: PRESENT: full ROM. ABSENT: calf tenderness, clubbing, pedal edema Psychiatric exam: PRESENT: appropriate affect, normal mood, other - comfortable and sedated. ABSENT: homicidal ideation, suicidal ideation Skin exam: PRESENT: dry, intact, warm. ABSENT: cyanosis, rash Results Laboratory Results: 12/07/16 07:57 12/08/16 07:38 Impressions: Chest X-Ray 12/05/16 16:19 IMPRESSION: CHRONIC INTERSTITIAL CHANGES AND STABLE PULMONARY NODULES. NO APPARENT ACUTE FINDINGS. Chest/Abdomen CTA 12/05/16 18:31 IMPRESSION: NO PULMONARY EMBOLI. Left lower lobe pulmonary mass measuring 3.4 cm. Multiple additional pulmonary nodules are present, largest in the right middle lobe measuring 16 mm. Mild basilar subsegmental atelectasis and small pleural effusions are present. Pulmonary mass was noted on the prior PET- CT. NO PULMONARY EMBOLI. Head CT 12/05/16 21:40 IMPRESSION: 2.5 cm right occipital lobe mass with moderate right occipital parietal and temporal lobe a vasogenic edema in the white matter, all similar to the previous MRI. No hemorrhage. No significant midline shift. KUB X-Ray 12/08/16 11:11 IMPRESSION: Nonspecific intestinal bowel gas pattern. Small radiopaque density adjacent to the L3-L4 disc space on the right which could conceivably represent a ureteric calculus. Other findings as noted above Assessment & Plan - Diagnosis (1) Acute encephalopathy Is this a current diagnosis for this admission?: YesPlan: Patient with metastatic brain cancer. She is now on comfort measures only. (2) Atrial fibrillation with RVR Is this a current diagnosis for this admission?: YesPlan: Resolved. Patient is now on comfort measures only. She is not monitored (3) Metastatic melanoma of brain Is this a current diagnosis for this admission?: YesPlan: Comfort measures only. Rather new diagnosis over the last 2 months. Daughter is extremely anxious and tearful at the bedside. Emotional support given. (4) Diabetes mellitus type 2 in obese Is this a current diagnosis for this admission?: YesPlan: Comfort measures only (5) Dehydration Is this a current diagnosis for this admission?: YesPlan: Comfort measures only - Time Time Spent with patient: 25-34 minutes Critical Time spent with patient: 15-24 minutes Medications reviewed and adjusted accordingly: Yes Anticipated discharge: Hospice - Inpatient Certification Based on my medical assessment, after consideration of the patient's comorbidities, presenting symptoms, or acuity I expect that the services needed warrant INPATIENT care.: Yes I certify that my determination is in accordance with my understanding of Medicare's requirements for reasonable and necessary INPATIENT services [42 CFR 412.3e].: Yes Medical Necessity: Need for Pain Control
[2016-12-12] MEDS: MORPHINE SULFATE 60 MG/60 ML RTUINJ IV PRN ×2 (02:23→17:44)
[2016-12-12] MEDS: KETOROLAC TROMETHAMINE INJ/PF 30 MG/1 ML SDV IV SCH ×4 (04:09→17:25)
[2016-12-12] MEDS: SILVER SULFADIAZINE 1% CREAM 25 GM TP SCH ×4 (04:53→17:25)
[2016-12-12] MEDS: ASPIRIN 81 MG TABLET, CHEWABLE PO SCH (07:45)
--- NOTE | 2016-12-12 08:37 | PDOC PROGRESS REPORT ---
Subjective Progress Note for:: 12/12/16 Subjective:: Respirations are decreased, patient is doing worse, mottled skin appearance Physical Exam Vital Signs: Temp Pulse Resp BP Pulse Ox 98.3 F 94 9 L 127/68 H 89 L 12/09/16 20:01 12/09/16 20:01 12/12/16 08:09 12/09/16 20:01 12/09/16 20:01 Pulse Oximeter Continuous Start: 12/06/16 11: 41 Freq: RTQ4 Status: Complete Document 12/08/16 08:23 HCR (Rec: 12/08/16 08:24 HCR [email or web address]) Pulse Oximetry Assessment Oxygen Saturation (92-100) 95 Oxygen Flow Rate (L/min) 2 Oxygen Delivery Method Nasal Cannula Equipment Usage Equipment in Use Continuous SpO2 Machine # 6 Results Laboratory Results: 12/07/16 07:57 12/08/16 07:38 Impressions: Chest X-Ray 12/05/16 16:19 IMPRESSION: CHRONIC INTERSTITIAL CHANGES AND STABLE PULMONARY NODULES. NO APPARENT ACUTE FINDINGS. Chest/Abdomen CTA 12/05/16 18:31 IMPRESSION: NO PULMONARY EMBOLI. Left lower lobe pulmonary mass measuring 3.4 cm. Multiple additional pulmonary nodules are present, largest in the right middle lobe measuring 16 mm. Mild basilar subsegmental atelectasis and small pleural effusions are present. Pulmonary mass was noted on the prior PET- CT. NO PULMONARY EMBOLI. Head CT 12/05/16 21:40 IMPRESSION: 2.5 cm right occipital lobe mass with moderate right occipital parietal and temporal lobe a vasogenic edema in the white matter, all similar to the previous MRI. No hemorrhage. No significant midline shift. KUB X-Ray 12/08/16 11:11 IMPRESSION: Nonspecific intestinal bowel gas pattern. Small radiopaque density adjacent to the L3-L4 disc space on the right which could conceivably represent a ureteric calculus. Other findings as noted above Assessment & Plan - Diagnosis (1) Melanoma Qualifiers: Melanoma location: upper extremity including shoulder Laterality: right Qualified Code(s): C43.61 - Malignant melanoma of right upper limb , including shoulder Is this a current diagnosis for this admission?: YesPlan: Comfort care measures only, continue with pain control, increasing morphine today, immanent. Today spent some time comforting patients family, spent about 35 minutes in discussion. - Time Time Spent with patient: 35 or more minutes Critical Time spent with patient: 35 or more minutes - Inpatient Certification Based on my medical assessment, after consideration of the patient's comorbidities, presenting symptoms, or acuity I expect that the services needed warrant INPATIENT care.: Yes I certify that my determination is in accordance with my understanding of Medicare's requirements for reasonable and necessary INPATIENT services [42 CFR 412.3e].: Yes Medical Necessity: Need for Pain Control
--- NOTE | 2016-12-12 15:12 | PDOC PROGRESS REPORT ---
Subjective Progress Note for:: 12/12/16 Subjective:: Patient seen on morning rounds. She is presently having periods of apnea up to 15 seconds. Daughter is at bedside. She remains on comfort measures only. She presently appears pain free. Dr Olson was apparently just in and wants to keep patient another 24 hrs on IV morphine [employer]. Physical Exam Vital Signs: Temp Pulse Resp BP Pulse Ox 98.3 F 94 6 L 127/68 H 89 L 12/09/16 20:01 12/09/16 20:01 12/12/16 14:00 12/09/16 20:01 12/09/16 20:01 Pulse Oximeter Continuous Start: 12/06/16 11: 41 Freq: RTQ4 Status: Complete Document 12/08/16 08:23 HCR (Rec: 12/08/16 08:24 HCR [email or web address]) Pulse Oximetry Assessment Oxygen Saturation (92-100) 95 Oxygen Flow Rate (L/min) 2 Oxygen Delivery Method Nasal Cannula Equipment Usage Equipment in Use Continuous SpO2 Machine # 6 General appearance: PRESENT: no acute distress, thin, well-developed, well- nourished Head exam: PRESENT: atraumatic, normocephalic Eye exam: PRESENT: conjunctiva pink, EOMI, PERRLA. ABSENT: scleral icterus Ear exam: PRESENT: normal external ear exam Mouth exam: PRESENT: moist, tongue midline Neck exam: ABSENT: carotid bruit, JVD, lymphadenopathy, thyromegaly Respiratory exam: PRESENT: decreased breath sounds, symmetrical, unlabored Cardiovascular exam: PRESENT: RRR. ABSENT: diastolic murmur, rubs, systolic murmur Pulses: PRESENT: normal dorsalis pedis pul Vascular exam: PRESENT: normal capillary refill GI/Abdominal exam: PRESENT: normal bowel sounds, soft. ABSENT: distended, guarding, mass, organolmegaly, rebound, tenderness Rectal exam: PRESENT: deferred Extremities exam: PRESENT: full ROM. ABSENT: calf tenderness, clubbing, pedal edema Neurological exam: PRESENT: CN II-XII grossly intact - unresponsive with periods of apnea, other Psychiatric exam: PRESENT: appropriate affect, normal mood. ABSENT: homicidal ideation, suicidal ideation Skin exam: PRESENT: dry, intact, warm. ABSENT: cyanosis, rash Results Laboratory Results: 12/07/16 07:57 12/08/16 07:38 Impressions: Chest X-Ray 12/05/16 16:19 IMPRESSION: CHRONIC INTERSTITIAL CHANGES AND STABLE PULMONARY NODULES. NO APPARENT ACUTE FINDINGS. Chest/Abdomen CTA 12/05/16 18:31 IMPRESSION: NO PULMONARY EMBOLI. Left lower lobe pulmonary mass measuring 3.4 cm. Multiple additional pulmonary nodules are present, largest in the right middle lobe measuring 16 mm. Mild basilar subsegmental atelectasis and small pleural effusions are present. Pulmonary mass was noted on the prior PET- CT. NO PULMONARY EMBOLI. Head CT 12/05/16 21:40 IMPRESSION: 2.5 cm right occipital lobe mass with moderate right occipital parietal and temporal lobe a vasogenic edema in the white matter, all similar to the previous MRI. No hemorrhage. No significant midline shift. KUB X-Ray 12/08/16 11:11 IMPRESSION: Nonspecific intestinal bowel gas pattern. Small radiopaque density adjacent to the L3-L4 disc space on the right which could conceivably represent a ureteric calculus. Other findings as noted above Assessment & Plan - Diagnosis (1) Acute encephalopathy Is this a current diagnosis for this admission?: YesPlan: Patient with metastatic melanoma with mets to the brain. She is now on comfort measures only. (2) Atrial fibrillation with RVR Is this a current diagnosis for this admission?: YesPlan: Resolved. Patient is now on comfort measures only. She is not monitored (3) Metastatic melanoma of brain Is this a current diagnosis for this admission?: YesPlan: Comfort measures only. Rather new diagnosis over the last 2 months. Daughter is extremely anxious and tearful at the bedside. Emotional support given. (4) Diabetes mellitus type 2 in obese Is this a current diagnosis for this admission?: YesPlan: Comfort measures only (5) Dehydration Is this a current diagnosis for this admission?: YesPlan: Comfort measures only - Time Time Spent with patient: 25-34 minutes Critical Time spent with patient: 15-24 minutes Medications reviewed and adjusted accordingly: Yes
[2016-12-13] MEDS ORDERED: LORAZEPAM INJ 2 MG/1 ML VIAL ONE (03:08)
[2016-12-13] MEDS ORDERED: LORAZEPAM INJ 2 MG/1 ML VIAL IV PRN (03:54)
[2016-12-13] MEDS: MORPHINE SULFATE 60 MG/60 ML RTUINJ IV PRN ×2 (04:50→23:21)
[2016-12-13] MEDS: KETOROLAC TROMETHAMINE INJ/PF 30 MG/1 ML SDV IV SCH ×5 (05:45→21:46)
[2016-12-13] MEDS: SILVER SULFADIAZINE 1% CREAM 25 GM TP SCH ×5 (05:45→21:46)
--- NOTE | 2016-12-13 07:57 | PDOC PROGRESS REPORT ---
Subjective Progress Note for:: 12/13/16 Subjective:: Pt had rough night, was coughing w/ secretions, was suctioned, had initiation of atropine drops Physical Exam Vital Signs: Temp Pulse Resp BP Pulse Ox 98.3 F 94 7 L 127/68 H 89 L 12/09/16 20:01 12/09/16 20:01 12/13/16 04:56 12/09/16 20:01 12/09/16 20:01 Pulse Oximeter Continuous Start: 12/06/16 11: 41 Freq: RTQ4 Status: Complete Document 12/08/16 08:23 HCR (Rec: 12/08/16 08:24 HCR [email or web address]) Pulse Oximetry Assessment Oxygen Saturation (92-100) 95 Oxygen Flow Rate (L/min) 2 Oxygen Delivery Method Nasal Cannula Equipment Usage Equipment in Use Continuous SpO2 Machine # 6 General appearance: PRESENT: mild distress Head exam: PRESENT: atraumatic Eye exam: ABSENT: scleral icterus Mouth exam: PRESENT: dry mucosa Neck exam: ABSENT: carotid bruit, JVD, lymphadenopathy, thyromegaly Respiratory exam: PRESENT: crackles Cardiovascular exam: PRESENT: bradycardia. ABSENT: diastolic murmur, rubs, systolic murmur GI/Abdominal exam: PRESENT: distended, mass, organolmegaly. ABSENT: rebound, tenderness Rectal exam: PRESENT: deferred Extremities exam: ABSENT: calf tenderness, clubbing, pedal edema Neurological exam: PRESENT: other - sedated Psychiatric exam: ABSENT: homicidal ideation, suicidal ideation Skin exam: PRESENT: cyanosis, mottled, pallor Results Laboratory Results: 12/07/16 07:57 12/08/16 07:38 Impressions: Chest X-Ray 12/05/16 16:19 IMPRESSION: CHRONIC INTERSTITIAL CHANGES AND STABLE PULMONARY NODULES. NO APPARENT ACUTE FINDINGS. Chest/Abdomen CTA 12/05/16 18:31 IMPRESSION: NO PULMONARY EMBOLI. Left lower lobe pulmonary mass measuring 3.4 cm. Multiple additional pulmonary nodules are present, largest in the right middle lobe measuring 16 mm. Mild basilar subsegmental atelectasis and small pleural effusions are present. Pulmonary mass was noted on the prior PET- CT. NO PULMONARY EMBOLI. Head CT 12/05/16 21:40 IMPRESSION: 2.5 cm right occipital lobe mass with moderate right occipital parietal and temporal lobe a vasogenic edema in the white matter, all similar to the previous MRI. No hemorrhage. No significant midline shift. KUB X-Ray 12/08/16 11:11 IMPRESSION: Nonspecific intestinal bowel gas pattern. Small radiopaque density adjacent to the L3-L4 disc space on the right which could conceivably represent a ureteric calculus. Other findings as noted above Assessment & Plan - Diagnosis (1) Melanoma Qualifiers: Melanoma location: upper extremity including shoulder Laterality: right Qualified Code(s): C43.61 - Malignant melanoma of right upper limb , including shoulder Is this a current diagnosis for this admission?: YesPlan: Con't with comfort care, optimizing now, increasing atropine drop, increased prn ativan, increased basal rate morphine, started scopalamine patch, spoke w/ daughter, offered comfort, spent 40 in coordination of care and discussion w/ daughter. is imminent. - Time Time Spent with patient: 35 or more minutes Critical Time spent with patient: 35 or more minutes - Inpatient Certification Based on my medical assessment, after consideration of the patient's comorbidities, presenting symptoms, or acuity I expect that the services needed warrant INPATIENT care.: Yes I certify that my determination is in accordance with my understanding of Medicare's requirements for reasonable and necessary INPATIENT services [42 CFR 412.3e].: Yes Medical Necessity: Need for Pain Control
[2016-12-13] MEDS ORDERED: ATROPINE SULFATE 1% OPH SOLN 5 ML BOTTLE SL PRN (08:14)
[2016-12-13] MEDS: ASPIRIN 81 MG TABLET, CHEWABLE PO SCH (08:42)
[2016-12-13] MEDS ORDERED: SCOPOLAMINE HYDROBROMIDE 1.5 MG PATCH.TD72 TD SCH (10:00)
[2016-12-13] MEDS: GLYCOPYRROLATE INJ 0.4 MG/2 ML VIAL IV PRN ×3 (11:56→21:40)
--- NOTE | 2016-12-13 16:15 | PDOC PROGRESS REPORT ---
Subjective Progress Note for:: 12/13/16 Subjective:: Patient seen on morning rounds. She is presently having periods of apnea up to 15 seconds. Daughter is at bedside. She remains on comfort measures only. She presently appears pain free. She is having increasing terminal secretions. Nursing suctioned her earlier, will add IV robinul for secretion management. Physical Exam Vital Signs: Temp Pulse Resp BP Pulse Ox 98.3 F 94 9 L 127/68 H 14 L 12/09/16 20:01 12/09/16 20:01 12/13/16 07:12 12/09/16 20:01 12/13/16 14:00 Pulse Oximeter Continuous Start: 12/06/16 11: 41 Freq: RTQ4 Status: Complete Document 12/08/16 08:23 HCR (Rec: 12/08/16 08:24 HCR [email or web address]) Pulse Oximetry Assessment Oxygen Saturation (92-100) 95 Oxygen Flow Rate (L/min) 2 Oxygen Delivery Method Nasal Cannula Equipment Usage Equipment in Use Continuous SpO2 Machine # 6 General appearance: PRESENT: no acute distress, thin, well-developed, well- nourished Head exam: PRESENT: atraumatic, normocephalic Eye exam: PRESENT: conjunctiva pink, EOMI, PERRLA. ABSENT: scleral icterus Ear exam: PRESENT: normal external ear exam Mouth exam: PRESENT: dry mucosa, tongue midline Neck exam: ABSENT: carotid bruit, JVD, lymphadenopathy, thyromegaly Respiratory exam: PRESENT: rhonchi, other - periods of apnea Cardiovascular exam: PRESENT: RRR. ABSENT: diastolic murmur, rubs, systolic murmur Pulses: PRESENT: normal dorsalis pedis pul Vascular exam: PRESENT: normal capillary refill GI/Abdominal exam: PRESENT: normal bowel sounds, soft. ABSENT: distended, guarding, mass, organolmegaly, rebound, tenderness Rectal exam: PRESENT: deferred Extremities exam: PRESENT: full ROM. ABSENT: calf tenderness, clubbing, pedal edema Neurological exam: PRESENT: altered, other - unresponsive to verbal stimuli. ABSENT: motor sensory deficit Psychiatric exam: PRESENT: appropriate affect Focused psych exam: PRESENT: other - unresponsive Skin exam: PRESENT: abrasion Results Laboratory Results: 12/07/16 07:57 12/08/16 07:38 Impressions: Chest X-Ray 12/05/16 16:19 IMPRESSION: CHRONIC INTERSTITIAL CHANGES AND STABLE PULMONARY NODULES. NO APPARENT ACUTE FINDINGS. Chest/Abdomen CTA 12/05/16 18:31 IMPRESSION: NO PULMONARY EMBOLI. Left lower lobe pulmonary mass measuring 3.4 cm. Multiple additional pulmonary nodules are present, largest in the right middle lobe measuring 16 mm. Mild basilar subsegmental atelectasis and small pleural effusions are present. Pulmonary mass was noted on the prior PET- CT. NO PULMONARY EMBOLI. Head CT 12/05/16 21:40 IMPRESSION: 2.5 cm right occipital lobe mass with moderate right occipital parietal and temporal lobe a vasogenic edema in the white matter, all similar to the previous MRI. No hemorrhage. No significant midline shift. KUB X-Ray 12/08/16 11:11 IMPRESSION: Nonspecific intestinal bowel gas pattern. Small radiopaque density adjacent to the L3-L4 disc space on the right which could conceivably represent a ureteric calculus. Other findings as noted above Assessment & Plan - Diagnosis (1) Acute encephalopathy Is this a current diagnosis for this admission?: YesPlan: Patient with metastatic melanoma with mets to the brain. She is now on comfort measures only. (2) Atrial fibrillation with RVR Is this a current diagnosis for this admission?: YesPlan: Resolved. Patient is now on comfort measures only. She is not monitored (3) Metastatic melanoma of brain Is this a current diagnosis for this admission?: YesPlan: Comfort measures only. Rather new diagnosis over the last 2 months. Daughter is extremely anxious and tearful at the bedside. Emotional support given. (4) Diabetes mellitus type 2 in obese Is this a current diagnosis for this admission?: YesPlan: Comfort measures only (5) Dehydration Is this a current diagnosis for this admission?: Yes - Time Time Spent with patient: 15-24 minutes Critical Time spent with patient: 15-24 minutes Medications reviewed and adjusted accordingly: Yes
[2016-12-14] MEDS: GLYCOPYRROLATE INJ 0.4 MG/2 ML VIAL IV PRN ×2 (01:30→09:52)
[2016-12-14] MEDS: KETOROLAC TROMETHAMINE INJ/PF 30 MG/1 ML SDV IV SCH ×3 (05:01→17:45)
[2016-12-14] MEDS: SILVER SULFADIAZINE 1% CREAM 25 GM TP SCH ×3 (05:01→17:45)
[2016-12-14] MEDS: ASPIRIN 81 MG TABLET, CHEWABLE PO SCH (08:41)
--- NOTE | 2016-12-14 12:08 | PDOC PROGRESS REPORT ---
Subjective Progress Note for:: 12/14/16 Subjective:: Patient seen on morning rounds. She is presently having periods of apnea up to 15 seconds. Daughter is at bedside. She remains on comfort measures only. She presently appears pain free. She has oral pharyngeal secretions that have required oral suctioning, robinul and atropine drops. She does not appear in any pain. Physical Exam Vital Signs: Temp Pulse Resp BP Pulse Ox 98.3 F 94 12 127/68 H 14 L 12/09/16 20:01 12/09/16 20:01 12/14/16 07:20 12/09/16 20:01 12/13/16 14:00 Pulse Oximeter Continuous Start: 12/06/16 11: 41 Freq: RTQ4 Status: Complete Document 12/08/16 08:23 HCR (Rec: 12/08/16 08:24 HCR [email or web address]) Pulse Oximetry Assessment Oxygen Saturation (92-100) 95 Oxygen Flow Rate (L/min) 2 Oxygen Delivery Method Nasal Cannula Equipment Usage Equipment in Use Continuous SpO2 Machine # 6 General appearance: PRESENT: no acute distress, thin, well-developed, well- nourished Head exam: PRESENT: atraumatic, normocephalic Eye exam: PRESENT: conjunctiva pink, EOMI, PERRLA. ABSENT: scleral icterus Ear exam: PRESENT: normal external ear exam Mouth exam: PRESENT: dry mucosa, tongue midline Neck exam: ABSENT: carotid bruit, JVD, lymphadenopathy, thyromegaly Respiratory exam: PRESENT: rhonchi, symmetrical, unlabored Cardiovascular exam: PRESENT: RRR. ABSENT: diastolic murmur, rubs, systolic murmur Pulses: PRESENT: normal dorsalis pedis pul GI/Abdominal exam: PRESENT: normal bowel sounds, soft. ABSENT: distended, guarding, mass, organolmegaly, rebound, tenderness Rectal exam: PRESENT: deferred Musculoskeletal exam: PRESENT: other - patient is unresponsive Neurological exam: PRESENT: altered - unresponsive to verbal stimuli Psychiatric exam: PRESENT: flat affect Skin exam: PRESENT: dry, warm Results Laboratory Results: 12/07/16 07:57 12/08/16 07:38 Impressions: Chest X-Ray 12/05/16 16:19 IMPRESSION: CHRONIC INTERSTITIAL CHANGES AND STABLE PULMONARY NODULES. NO APPARENT ACUTE FINDINGS. Chest/Abdomen CTA 12/05/16 18:31 IMPRESSION: NO PULMONARY EMBOLI. Left lower lobe pulmonary mass measuring 3.4 cm. Multiple additional pulmonary nodules are present, largest in the right middle lobe measuring 16 mm. Mild basilar subsegmental atelectasis and small pleural effusions are present. Pulmonary mass was noted on the prior PET- CT. NO PULMONARY EMBOLI. Head CT 12/05/16 21:40 IMPRESSION: 2.5 cm right occipital lobe mass with moderate right occipital parietal and temporal lobe a vasogenic edema in the white matter, all similar to the previous MRI. No hemorrhage. No significant midline shift. KUB X-Ray 12/08/16 11:11 IMPRESSION: Nonspecific intestinal bowel gas pattern. Small radiopaque density adjacent to the L3-L4 disc space on the right which could conceivably represent a ureteric calculus. Other findings as noted above Assessment & Plan - Diagnosis (1) Acute encephalopathy Is this a current diagnosis for this admission?: YesPlan: Patient with metastatic melanoma with mets to the brain. She is now on comfort measures only.She remains unresponsive (2) Atrial fibrillation with RVR Is this a current diagnosis for this admission?: YesPlan: Resolved. Patient is now on comfort measures only. She is not monitored (3) Metastatic melanoma of brain Is this a current diagnosis for this admission?: YesPlan: Comfort measures only. Rather new diagnosis over the last 2 months. Daughter is extremely anxious and tearful at the bedside. Emotional support given. (4) Diabetes mellitus type 2 in obese Is this a current diagnosis for this admission?: YesPlan: Comfort measures only (5) Dehydration Is this a current diagnosis for this admission?: YesPlan: Comfort measures only - Time Medications reviewed and adjusted accordingly: Yes
[2016-12-14] MEDS: MORPHINE SULFATE 60 MG/60 ML RTUINJ IV PRN (18:15)
[2016-12-14] MEDS: LORAZEPAM INJ 2 MG/1 ML VIAL IV PRN ×3 (20:37→22:58)
--- NOTE | 2016-12-15 00:28 | PDOC PROGRESS REPORT ---
Subjective Progress Note for:: 12/14/16 Subjective:: Appears comfortable and did better with resting overnight according to her daughters Physical Exam Vital Signs: Temp Pulse Resp BP Pulse Ox 98.3 F 94 12 127/68 H 14 L 12/09/16 20:01 12/09/16 20:01 12/14/16 07:20 12/09/16 20:01 12/13/16 14:00 Pulse Oximeter Continuous Start: 12/06/16 11: 41 Freq: RTQ4 Status: Complete Document 12/08/16 08:23 HCR (Rec: 12/08/16 08:24 HCR [email or web address]) Pulse Oximetry Assessment Oxygen Saturation (92-100) 95 Oxygen Flow Rate (L/min) 2 Oxygen Delivery Method Nasal Cannula Equipment Usage Equipment in Use Continuous SpO2 Machine # 6 General appearance: PRESENT: other - Open mouthed breathing without response Head exam: PRESENT: normocephalic Mouth exam: PRESENT: dry mucosa Respiratory exam: PRESENT: tachypnea - Rattling in the throat Cardiovascular exam: PRESENT: bradycardia GI/Abdominal exam: PRESENT: diminished bowel sounds Neurological exam: PRESENT: altered Results Laboratory Results: 12/07/16 07:57 12/08/16 07:38 Impressions: Chest X-Ray 12/05/16 16:19 IMPRESSION: CHRONIC INTERSTITIAL CHANGES AND STABLE PULMONARY NODULES. NO APPARENT ACUTE FINDINGS. Chest/Abdomen CTA 12/05/16 18:31 IMPRESSION: NO PULMONARY EMBOLI. Left lower lobe pulmonary mass measuring 3.4 cm. Multiple additional pulmonary nodules are present, largest in the right middle lobe measuring 16 mm. Mild basilar subsegmental atelectasis and small pleural effusions are present. Pulmonary mass was noted on the prior PET- CT. NO PULMONARY EMBOLI. Head CT 12/05/16 21:40 IMPRESSION: 2.5 cm right occipital lobe mass with moderate right occipital parietal and temporal lobe a vasogenic edema in the white matter, all similar to the previous MRI. No hemorrhage. No significant midline shift. KUB X-Ray 12/08/16 11:11 IMPRESSION: Nonspecific intestinal bowel gas pattern. Small radiopaque density adjacent to the L3-L4 disc space on the right which could conceivably represent a ureteric calculus. Other findings as noted above Assessment & Plan - Diagnosis (1) General weakness Is this a current diagnosis for this admission?: Yes (2) Metastatic melanoma of brain Is this a current diagnosis for this admission?: YesPlan: Terminal / comfort care which was discussed with the saughters - Time Time Spent with patient: 15-24 minutes Critical Time spent with patient: 15-24 minutes Anticipated discharge: Hospice
[2016-12-15] MEDS: LORAZEPAM INJ 2 MG/1 ML VIAL IV PRN ×14 (01:06→15:50)
[2016-12-15] MEDS: KETOROLAC TROMETHAMINE INJ/PF 30 MG/1 ML SDV IV SCH ×2 (01:13→09:46)
[2016-12-15] MEDS: SILVER SULFADIAZINE 1% CREAM 25 GM TP SCH ×4 (01:13→18:01)
[2016-12-15] MEDS: MORPHINE SULFATE 60 MG/60 ML RTUINJ IV PRN ×2 (05:44→09:18)
[2016-12-15] MEDS: ASPIRIN 81 MG TABLET, CHEWABLE PO SCH (08:06)
[2016-12-15] MEDS: GLYCOPYRROLATE INJ 0.4 MG/2 ML VIAL IV SCH ×3 (09:46→18:01)
--- NOTE | 2016-12-15 11:41 | PDOC PROGRESS REPORT ---
Subjective Progress Note for:: 12/15/16 Subjective:: Patient seen on morning rounds. She appears comfortable. She has rattling of secretions in throat. Daughter is at bedside. She remains on comfort measures only. She presently appears pain free. She has oral pharyngeal secretions that have required oral suctioning, robinul and atropine drops. Nursing reports she now has no gag reflex when she is suctioned. She does not appear in any pain or distress. Physical Exam Vital Signs: Temp Pulse Resp BP Pulse Ox 98.3 F 94 12 127/68 H 14 L 12/09/16 20:01 12/09/16 20:01 12/15/16 06:00 12/09/16 20:01 12/13/16 14:00 Pulse Oximeter Continuous Start: 12/06/16 11: 41 Freq: RTQ4 Status: Complete Document 12/08/16 08:23 HCR (Rec: 12/08/16 08:24 HCR [email or web address]) Pulse Oximetry Assessment Oxygen Saturation (92-100) 95 Oxygen Flow Rate (L/min) 2 Oxygen Delivery Method Nasal Cannula Equipment Usage Equipment in Use Continuous SpO2 Machine # 6 General appearance: PRESENT: no acute distress, thin, well-developed, well- nourished Head exam: PRESENT: atraumatic, normocephalic Eye exam: PRESENT: conjunctiva pink, EOMI, PERRLA. ABSENT: scleral icterus Ear exam: PRESENT: normal external ear exam Mouth exam: PRESENT: dry mucosa, tongue midline Neck exam: ABSENT: carotid bruit, JVD, lymphadenopathy, thyromegaly Respiratory exam: PRESENT: clear to auscultation bairon, other - postpharyngeal secretions not able to be cleared by suctioning. ABSENT: rales, rhonchi, wheezes Cardiovascular exam: PRESENT: RRR. ABSENT: diastolic murmur, rubs, systolic murmur Pulses: PRESENT: normal dorsalis pedis pul Vascular exam: PRESENT: normal capillary refill GI/Abdominal exam: PRESENT: normal bowel sounds, soft. ABSENT: distended, guarding, mass, organolmegaly, rebound, tenderness Rectal exam: PRESENT: deferred Extremities exam: PRESENT: full ROM. ABSENT: calf tenderness, clubbing, pedal edema Neurological exam: PRESENT: altered, other - Patient is unresponsive to verbal or tactile stimuli Psychiatric exam: PRESENT: flat affect Skin exam: PRESENT: dry, pallor, warm Results Laboratory Results: 12/07/16 07:57 12/08/16 07:38 Impressions: Chest X-Ray 12/05/16 16:19 IMPRESSION: CHRONIC INTERSTITIAL CHANGES AND STABLE PULMONARY NODULES. NO APPARENT ACUTE FINDINGS. Chest/Abdomen CTA 12/05/16 18:31 IMPRESSION: NO PULMONARY EMBOLI. Left lower lobe pulmonary mass measuring 3.4 cm. Multiple additional pulmonary nodules are present, largest in the right middle lobe measuring 16 mm. Mild basilar subsegmental atelectasis and small pleural effusions are present. Pulmonary mass was noted on the prior PET- CT. NO PULMONARY EMBOLI. Head CT 12/05/16 21:40 IMPRESSION: 2.5 cm right occipital lobe mass with moderate right occipital parietal and temporal lobe a vasogenic edema in the white matter, all similar to the previous MRI. No hemorrhage. No significant midline shift. KUB X-Ray 12/08/16 11:11 IMPRESSION: Nonspecific intestinal bowel gas pattern. Small radiopaque density adjacent to the L3-L4 disc space on the right which could conceivably represent a ureteric calculus. Other findings as noted above Assessment & Plan - Diagnosis (1) Acute encephalopathy Is this a current diagnosis for this admission?: YesPlan: Patient with metastatic melanoma with mets to the brain. She is now on comfort measures only.She remains unresponsive (2) Atrial fibrillation with RVR Is this a current diagnosis for this admission?: YesPlan: Resolved. Patient is now on comfort measures only. She is not monitored (3) Metastatic melanoma of brain Is this a current diagnosis for this admission?: YesPlan: Comfort measures only. Rather new diagnosis over the last 2 months. Daughter is extremely anxious and tearful at the bedside. Emotional support given. (4) Diabetes mellitus type 2 in obese Is this a current diagnosis for this admission?: YesPlan: Comfort measures only (5) Dehydration Is this a current diagnosis for this admission?: YesPlan: Comfort measures only - Time Time Spent with patient: 25-34 minutes Medications reviewed and adjusted accordingly: Yes Anticipated discharge: Home with Homehealth
[2016-12-15] MEDS ORDERED: LORAZEPAM IV PRN (14:56)
[2016-12-15] MEDS ORDERED: MORPHINE SULFATE 60 MG/60 ML RTUINJ IV PRN (15:59)
[2016-12-15] MEDS ORDERED: ATROPINE SULFATE 1% OPH SOLN 5 ML BOTTLE SL PRN (16:16)
[2016-12-15] MEDS ORDERED: LORAZEPAM 24 MG/240 ML BAG IV PRN (17:30)
--- NOTE | 2016-12-16 11:13 | Death Summary ---
Summary Date : 12/15/16 Time of :: 18:38 Autopsy: No Resuscitation Status: Comfort Measures Only Primary Care Provider: Dr Abdifatah Osorio Consulting Provider: Dr Olson - Final Diagnosis (1) Acute encephalopathy Is this a current diagnosis for this admission?: Yes (2) Atrial fibrillation with RVR Is this a current diagnosis for this admission?: Yes (3) Metastatic melanoma of brain Is this a current diagnosis for this admission?: Yes (4) Diabetes mellitus type 2 in obese Is this a current diagnosis for this admission?: Yes (5) Dehydration Is this a current diagnosis for this admission?: Yes Hospital Course:: Patient was admitted from the ED to the hospitalist's service on 12/06/2016, with altered mental status and dehydration. 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 She was started on steroids and referred for radiation therapy. She had significant decline in overall performance after radiation was started. She was requiring frequent IV hydration in the oncology clinic. Her oral intake was poor. She began having difficulty walking. Dr Olson was consulted . After lengthy discussion with the patient and family, she was moved to Comfort Care measures only. There was discussion with the family regarding moving the patient to inpatient hospice. Family elected to have patient's symptoms managed here. She had a morphine BRIM STIFFENER started on 12/08 this required some titration but kept patient free from pain and dyspnea. She was noted to apneic and without a pulse on at 1838.
== END 2016-12-15 20:15 | DRG 640 ==
LOC: ER 15:48 → UNDOADMIN 12-06 00:16 → EH 12-06 00:16 → 5 12-06 08:19 → 3N 12-08 10:57
PROVIDERS: ADMIT Family Medicine; ATTEND Family Medicine
DX: E86.0 Dehydration (principal); G93.49 Other encephalopathy; C79.31 Secondary malignant neoplasm of brain; C78.00 Secondary malignant neoplasm of unspecified lung; E46 Unspecified protein-calorie malnutrition; R09.02 Hypoxemia; Z51.5 Encounter for palliative care; Z85.820 Personal history of malignant melanoma of skin; E87.1 Hypo-osmolality and hyponatremia; I10 Essential (primary) hypertension; I25.10 Atherosclerotic heart disease of native coronary artery without angina pectoris; K21.9 Gastro-esophageal reflux disease without esophagitis; M19.90 Unspecified osteoarthritis, unspecified site; I48.91 Unspecified atrial fibrillation; R00.0 Tachycardia, unspecified; E11.9 Type 2 diabetes mellitus without complications; Z66 Do not resuscitate; T30.0 Burn of unspecified body region, unspecified degree; Y84.2 Radiological procedure and radiotherapy as the cause of abnormal reaction of the patient, or of later complication, without mention of misadventure at the time of the procedure; Z68.23 Body mass index [BMI] 23.0-23.9, adult; Z79.4 Long term (current) use of insulin; Z79.84 Long term (current) use of oral hypoglycemic drugs; Z79.82 Long term (current) use of aspirin; Z88.6 Allergy status to analgesic agent; Z88.8 Allergy status to other drugs, medicaments and biological substances
CPT/HCPCS: 36415; 70450; 71020; 71275; 74000; 80048; 80053; 81001; 82040; 82962; 83605; 83735; 84443; 84484; 85025; 85027; 87040; 93005; 93010; 94762; 94799; 96365; 96366; 99285; G8978-GP; G8979-GP; G8980-GP; G8987-GO; G8988-GO; G8989-GO; J0295; J2060; J2270; J2405; J2543; J3475; J3480; J3490; J7030